=== PATIENT | male | born 1970 | race African-American/Black ===

== ENCOUNTER 2016-12-11 02:04 | Emergency (ER) | payer SELFPAY ==
[~2016-12-11] VITALS: Ht 172.7 cm; Wt 65.0 kg
[~2016-12-11 02:04] MED LIST: ALBUAER3 INH; BENZ100 PO; IBUP-988 PO; SODI0.9A EACH NARE; ZOFR4TAB3 SL
[2016-12-11 02:05] VITALS: BP 131/91; PULSE 96; RESP 18; TEMP 98.1; O2SAT 100
[2016-12-11] MEDS ORDERED: chlorproMAZINE INJ 25 MG in SODIUM CHLORID 0.9% 500 ML INJ 500 ML IV ONE (02:30)
--- NOTE | 2016-12-11 02:58 | PD ---
HPI Chief Complaint: Medical Clearance Time Seen by Provider: 02:23 Travel History International Travel<30 days: No Contact w/Intl Traveler<30days: No Traveled to known affect area: No History of Present Illness HPI This is a 46-year-old male who presents emergency Department with hiccups. He says that his hiccups. Going on intermittently for a year but over the past week they've gotten more severe, constant, and they were keeping him up from sleep tonight so he came to the emergency department. He says he intermittently vomits as well. He says he's lost about 15 pounds in the last several months. He has noticed some swollen nodes in his neck area. He does drink alcohol every day. He doesn't follow with a doctor. He has had a chronic cough but denies any hemoptysis. PFSH Past Medical History Medical History: Denies Significant Hx Diminished Hearing: No Influenza Vaccination: No Social History Alcohol Use: Yes (4 PACK) Tobacco Use: Yes (1/2 PPD) Substance Use: No Allergies-Medications (Allergen,Severity, Reaction): Coded Allergies: No Known Allergies (Verified , 12/11/16) Reported Meds & Prescriptions Reported Meds & Active Scripts Active No Active Prescriptions or Reported Medications Review of Systems Except as stated in HPI: all other systems reviewed are Neg Physical Exam Narrative GENERAL: Thin, actively having hiccups SKIN: Focused skin assessment warm and dry. HEAD: Atraumatic. Normocephalic. EYES: Pupils equal and round. No injection or drainage. ENT: Moist mucous membranes NECK: Trachea midline. Anterior and posterior cervical lymphadenopathy. No axillary lymphadenopathy. CARDIOVASCULAR: Regular rate and rhythm. No murmur appreciated. RESPIRATORY: Clear to auscultation. Breath sounds equal bilaterally. GASTROINTESTINAL: Abdomen soft, non-tender, nondistended. MUSCULOSKELETAL: No obvious deformities. NEUROLOGICAL: Awake and alert. No obvious cranial nerve deficits. Moving all extremities. PSYCHIATRIC: Appropriate mood and affect; insight and judgment normal. Data Data Last Documented VS Vital Signs Date Time Temp Pulse Resp B/P Pulse Ox O2 Delivery O2 Flow Rate FiO2 12/11/16 04:09 99 18 131/102 100 Room Air 12/11/16 02:05 98.1 Orders Complete Blood Count With Diff (12/11/16 02:23) Comprehensive Metabolic Panel (12/11/16 02:23) Ct Thorax/ Chest W Iv Contrast (12/11/16 ) ^ Insert Iv (12/11/16 02:23) Chlorpromazine Inj (Thorazine Inj) (12/11/16 02:30) Iohexol 350 Inj (Omnipaque 350 Inj) (12/11/16 04:08) Labs Laboratory Tests Test 12/11/16 12/11/16 02:35 03:38 Sodium Level 132 MEQ/L Potassium Level 3.8 MEQ/L Chloride Level 93 MEQ/L Carbon Dioxide Level 27.9 MEQ/L Anion Gap 11 MEQ/L Blood Urea Nitrogen 4 MG/DL Creatinine 0.63 MG/DL Estimat Glomerular Filtration 168 ML/MIN Rate Random Glucose 68 MG/DL Calcium Level 8.3 MG/DL Total Bilirubin 0.9 MG/DL Aspartate Amino Transf 201 U/L (AST/SGOT) Alanine Aminotransferase 72 U/L (ALT/SGPT) Alkaline Phosphatase 94 U/L Total Protein 8.0 GM/DL Albumin 3.2 GM/DL White Blood Count 9.1 TH/MM3 Red Blood Count 3.57 MIL/MM3 Hemoglobin 12.0 GM/DL Hematocrit 35.3 % Mean Corpuscular Volume 98.8 FL Mean Corpuscular Hemoglobin 33.7 PG Mean Corpuscular Hemoglobin 34.1 % Concent Red Cell Distribution Width 14.1 % Platelet Count 142 TH/MM3 Mean Platelet Volume 8.0 FL Neutrophils (%) (Auto) 79.6 % Lymphocytes (%) (Auto) 12.6 % Monocytes (%) (Auto) 7.2 % Eosinophils (%) (Auto) 0.2 % Basophils (%) (Auto) 0.4 % Neutrophils # (Auto) 7.3 TH/MM3 Lymphocytes # (Auto) 1.2 TH/MM3 Monocytes # (Auto) 0.7 TH/MM3 Eosinophils # (Auto) 0.0 TH/MM3 Basophils # (Auto) 0.0 TH/MM3 CBC Comment DIFF FINAL Differential Comment MDM Medical Decision Making Medical Screen Exam Complete: Yes Emergency Medical Condition: Yes Interpretation(s) Afebrile, mild tachycardia, normotensive Mild anemia Mild hyponatremia Paraprotein gap of 4.8 Last [address] 12/11/16 0000 Signed Impressions: Service Date/Time: Sunday, December 11, 2016 03:59 - CONCLUSION: 1. No evidence of acute thoracic abnormality. Lung abnormality as above which may reflect Mycobacterium avium intracellulare infection. 2. Hypodense liver compatible with fatty infiltration or hepatocellular disease. Hans Malone MD Differential Diagnosis Thoracic mass, gastritis, GERD, pneumonia Narrative Course This is a 46-year-old male who presents to the emergency department with intractable hiccups. He appears cachectic on exam, has had weight loss and has lymphadenopathy in the cervical region. His appearance would suggest an undiagnosed chronic illness. Labs were obtained which demonstrate a paraprotein Of 4.8. CT of the chest was obtained given my concern for possible malignancy, and it demonstrates a possible BILLIE infection in the right middle lung. I discussed this with the patient and his family member. I recommended he follow up with the [facility] as an outpatient and that he be tested for HIV. I don't think he requires acute treatment at this point. He will be discharged home chlorpromazine which helped him in the emergency department. Diagnosis Primary Impression: Lung abnormality Additional Impression: Intractable hiccups Referrals: [facility] Patient Instructions: General Instructions Additional Instructions: You have a lung abnormality on CT which may reflect mycobacterium avium intracellulare. You need to have follow up with a primary care physician and you should be tested for HIV as an outpatient. Med/Other Pt SpecificInfo: Prescription(s) given Scripts Chlorpromazine 25 Mg Tab25 Mg PO Q6H PRN (HICCOUGHS) 7 Days Ref 0 Prov:Sarahi So MD 12/11/16 Disposition: 01 DISCHARGE HOME Condition: Stable Sarahi So MD Dec 11, 2016 02:58
[2016-12-11 03:07] LABS: ALKALINE PHOSPHATASE 94 U/L (45-117); TOTAL BILIRUBIN ADULT 0.9 MG/DL (0.2-1.0)
[2016-12-11 03:20] LABS: ALT (GPT) 72 U/L (12-78); ANION GAP 11 MEQ/L (5-15); AST (GOT) 201 U/L (15-37); BICARBONATE 27.9 MEQ/L (21.0-32.0); BLOOD UREA NITROGEN 4 MG/DL (7-18); CHLORIDE 93 MEQ/L (98-107); GLOMERULAR FILTRATION RATE 168 ML/MIN (>89); POTASSIUM 3.8 MEQ/L (3.5-5.1); SODIUM (NA) 132 MEQ/L (136-145)
[2016-12-11 03:58] LABS: AUTOMATED NEUTROPHIL # 7.3 TH/MM3 (1.8-7.7); BASOPHIL % 0.4 % (0.0-2.0); EOSINOPHIL % 0.2 % (0.0-4.0); HEMATOCRIT 35.3 % (39.0-51.0); HEMO FLAGS DIFF FINAL; LYMPH % 12.6 % (9.0-44.0); LYMPHOCYTE # 1.2 TH/MM3 (1.0-4.8); MEAN CELL VOLUME 98.8 FL (80.0-100.0); MEAN CORPUSCULAR HEMOGLOBIN 33.7 PG (27.0-34.0); MEAN CORPUSCULAR HGB CONC 34.1 % (32.0-36.0); MONO % 7.2 % (0.0-8.0); NEUT % 79.6 % (16.0-70.0); PLATELET COUNT 142 TH/MM3 (150-450); RED BLOOD COUNT 3.57 MIL/MM3 (4.50-5.90); RED CELL DISTRIBUTION WIDTH 14.1 % (11.6-17.2); WHITE BLOOD COUNT 9.1 TH/MM3 (4.0-11.0)
[2016-12-11] MEDS ORDERED: IOHEXOL 350 MG/ML 10 ML VIAL (for RAD DIAG) IV ONE (04:08)
[2016-12-11 04:09] VITALS: BP 131/102; PULSE 99; RESP 18; O2SAT 100
--- NOTE | 2016-12-11 04:20 | RADRPT ---
EXAM DATE/TIME: 12/11/2016 03:59 [facility] COMPARISON: No previous studies available for comparison. INDICATIONS : Hiccups for several days. IV CONTRAST: 60 cc Omnipaque 350 (iohexol) IV RADIATION DOSE: 5.10 CTDIvol (mGy) MEDICAL HISTORY : None SURGICAL HISTORY : None. ENCOUNTER: Initial ACUITY: 4 - 6 days PAIN SCALE: 3/10 LOCATION: chest TECHNIQUE: Volumetric scanning of the chest was performed. Using automated exposure control and adjustment of t he mA and/or kV according to patient size, radiation dose was kept as low as reasonably achievable to obtain optimal diagnostic quality images. FINDINGS: There is a tree in bud appearance consistent with mycobacterium avium intracellulare in the right mid dle lobe. No pleural effusions are identified. No pulmonary nodules are identified. There is parenchy mal scarring on the left. Examination of the mediastinum demonstrates no abnormally enlarged lymph nodes by CT criteria. No axi llary or hilar abnormalities are identified. Coronary artery calcifications are not present. There is direct origin of the left vertebral artery from the arch which can be seen as a normal variation. Th ere is decreased density of the liver with respect to the spleen compatible with fatty infiltration. The spleen is unremarkable. CONCLUSION: 1. No evidence of acute thoracic abnormality. Lung abnormality as above which may reflect Mycobacteri um avium intracellulare infection. 2. Hypodense liver compatible with fatty infiltration or hepatocellular disease. Hans Malone MD on December 11, 2016 at 4:16 Board Certified Radiologist. This report was verified electronically.
[2016-12-11] MEDS ORDERED: CHLO25TA38 PO (04:43)
== END 2016-12-11 05:09 | disposition home or self-care (01) ==
LOC: NEPE 02:04
DX: R91.8 Other nonspecific abnormal finding of lung field (principal); F17.210 Nicotine dependence, cigarettes, uncomplicated
CPT/HCPCS: 71260; 80053; 85025; 96365; 96366; 99285; J3230; J7040; Q9967

== ENCOUNTER 2017-02-22 14:42 | Inpatient (IN) | payer SELFPAY ==
[~2017-02-22] VITALS: Ht 167.6 cm; Wt 56.7 kg
[~2017-02-22 14:42] MED LIST changes: -ALBUAER3 INH; -BENZ100 PO; +CHLO25TA38 PO; -IBUP-988 PO; -SODI0.9A EACH NARE; -ZOFR4TAB3 SL
[2017-02-22 14:59] VITALS: BP 129/98; PULSE 79; RESP 16; TEMP 98
[2017-02-22 15:05] VITALS: BP 129/98; PULSE 79; RESP 16; RESP 18; TEMP 98; O2SAT 96
[2017-02-22] MEDS ORDERED: PANTOPRAZOLE INJ 80 MG in SODIUM CHLORIDE 0.9% INJ 35 ML IV ONE (15:14)
[2017-02-22] MEDS ORDERED: SODIUM CHLOR 0.9% 1000 ML INJ 1,000 ML IV SCH ×2 (15:14→17:00)
[2017-02-22] MEDS ORDERED: SODIUM CHLORIDE 0.9% FLUSH 10 ML FLUSH IVF PRN (15:15)
[2017-02-22] MEDS ORDERED: LORazepam 1 MG TAB PO PRN (15:30)
[2017-02-22] MEDS ORDERED: LORazepam 2 MG TAB PO PRN (15:30)
[2017-02-22] MEDS ORDERED: LORazepam 2 MG/ML VIAL IV PUSH PRN ×4 (15:30)
[2017-02-22] MEDS ORDERED: FLUMAZENIL 0.5 MG/5 ML VIAL IV PUSH PRN (15:30)
--- NOTE | 2017-02-22 15:41 | PD ---
HPI Chief Complaint: GI Complaint Time Seen by Provider: 15:14 Travel History International Travel<30 days: No Contact w/Intl Traveler<30days: No Traveled to known affect area: No History of Present Illness HPI This is a 46-year-old male with a history of chronic daily alcohol abuse, questionable chronic pulmonary infection, who presents here today with complaints of bloody vomitus 2 episodes. The patient reported initially that he coughed up blood. Per paramedics he then clarified that he vomited bright red blood. The patient denies any melena. Patient denies a bright red blood per rectum. He was seen here in November and had a chest CT scan that showed questionable Mycobacterium avium complex. He was instructed to follow up as an outpatient. He has not done this as of yet. The patient denies having history of HIV. He states he has not been tested for HIV though. There are no other complaints time my examination. PFSH Past Medical History Hx Anticoagulant Therapy: No Diminished Hearing: No Medical other: Yes (ETOH ABUSE ) Immunizations Current: No Tetanus Vaccination: < 5 Years Influenza Vaccination: No Past Surgical History Joint Replacement: Yes Social History Alcohol Use: Yes (4 PACK/DAY ) Tobacco Use: Yes (1/2 PPD) Substance Use: No (DENIES ) Allergies-Medications (Allergen,Severity, Reaction): Coded Allergies: No Known Allergies (Verified , 02/22/17) Reported Meds & Prescriptions Reported Meds & Active Scripts Active No Active Prescriptions or Reported Medications Review of Systems Except as stated in HPI: all other systems reviewed are Neg General / Constitutional: No: Fever, Chills HENT: No: Headaches, Neck Pain Cardiovascular: No: Chest Pain or Discomfort, Palpitations Respiratory: Positive: Cough, No: Shortness of Breath Gastrointestinal: Positive: Hematemesis, No: Nausea, Vomiting, Diarrhea, Abdominal Pain, Hematochezia Genitourinary: No: Dysuria, Nocturia Skin: No Rash, No Itching Neurologic: No: Weakness, Dizziness, Headache Physical Exam Narrative GENERAL: Well-developed well-nourished male in no acute rest her distress. SKIN: Focused skin assessment warm/dry. HEAD: Atraumatic. Normocephalic. EYES:No scleral icterus. Red scleral injection. No drainage. ENT: No nasal bleeding or discharge. Mucous membranes pink and moist. NECK: Trachea midline supple. CARDIOVASCULAR: Regular rate and rhythm. No murmur appreciated. RESPIRATORY: No accessory muscle use. Clear to auscultation. Breath sounds equal bilaterally. Decreased respiratory effort. GASTROINTESTINAL: Abdomen soft, non-tender, nondistended. MUSCULOSKELETAL: No obvious deformities. No clubbing. No cyanosis. No edema. NEUROLOGICAL: Awake and alert. No obvious cranial nerve deficits. Motor grossly within normal limits. Normal speech. PSYCHIATRIC: Appropriate mood and affect; insight and judgment normal. Data Data Last Documented VS Vital Signs Date Time Temp Pulse Resp B/P (MAP) Pulse Ox O2 Delivery O2 Flow Rate FiO2 02/22/17 16:00 82 15 144/92 (109) 97 Room Air 02/22/17 15:05 98.0 Orders Orders Complete Blood Count With Diff (02/22/17 15:14) Comprehensive Metabolic Panel (02/22/17 15:14) Lipase (02/22/17 15:14) Prothrombin Time / Inr (Pt) (02/22/17 15:14) Act Partial Throm Time (Ptt) (02/22/17 15:14) Alcohol (Ethanol) (02/22/17 15:14) Urinalysis - C+S If Indicated (02/22/17 15:14) Type And Screen (02/22/17 15:14) Ecg Monitoring (02/22/17 15:14) Iv Access Insert/Monitor (02/22/17 15:14) Ng Gastric Tube Insert/Monitor (02/22/17 15:14) Oximetry (02/22/17 15:14) Sodium Chlor 0.9% 1000 Ml Inj (Ns 1000 M (02/22/17 15:14) Sodium Chloride 0.9% Flush (Ns Flush) (02/22/17 15:15) Sodium Chloride 0.9... W/Pantoprazole In (02/22/17 15:14) Alcohol Withdrawal Asmt-Ciwa Q4HX18 (02/22/17 15:26) Flumazenil Inj (Romazicon Inj) (02/22/17 15:30) Lorazepam (Ativan) (02/22/17 15:30) Lorazepam Inj (Ativan Inj) (02/22/17 15:30) Lorazepam (Ativan) (02/22/17 15:30) Lorazepam Inj (Ativan Inj) (02/22/17 15:30) Lorazepam Inj (Ativan Inj) (02/22/17 15:30) Lorazepam Inj (Ativan Inj) (02/22/17 15:30) Sodium Chlor 0.9% 1000 Ml Inj (Ns 1000 M (02/22/17 17:00) Chest, Single Ap (02/22/17 16:52) Sodium Chloride 0.9... W/Pantoprazole In (02/22/17 16:56) Admit Order (Ed Use Only) (02/22/17 16:57) Labs Laboratory Tests Test 02/22/17 15:00 White Blood Count 6.1 TH/MM3 Red Blood Count 4.01 MIL/MM3 Hemoglobin 13.7 GM/DL Hematocrit 41.3 % Mean Corpuscular Volume 102.8 FL Mean Corpuscular Hemoglobin 34.0 PG Mean Corpuscular Hemoglobin Concent 33.1 % Red Cell Distribution Width 13.6 % Platelet Count 198 TH/MM3 Mean Platelet Volume 8.1 FL Neutrophils (%) (Auto) 69.9 % Lymphocytes (%) (Auto) 19.1 % Monocytes (%) (Auto) 10.1 % Eosinophils (%) (Auto) 0.4 % Basophils (%) (Auto) 0.5 % Neutrophils # (Auto) 4.3 TH/MM3 Lymphocytes # (Auto) 1.2 TH/MM3 Monocytes # (Auto) 0.6 TH/MM3 Eosinophils # (Auto) 0.0 TH/MM3 Basophils # (Auto) 0.0 TH/MM3 CBC Comment DIFF FINAL Differential Comment Prothrombin Time 10.6 SEC Prothromb Time International Ratio 1.0 RATIO Activated Partial Thromboplast Time 24.3 SEC Blood Urea Nitrogen 5 MG/DL Creatinine 0.73 MG/DL Random Glucose 61 MG/DL Total Protein 8.6 GM/DL Albumin 3.5 GM/DL Calcium Level 8.8 MG/DL Alkaline Phosphatase 79 U/L Aspartate Amino Transf (AST/SGOT) 93 U/L Alanine Aminotransferase (ALT/SGPT) 37 U/L Total Bilirubin 0.9 MG/DL Sodium Level 128 MEQ/L Potassium Level 4.5 MEQ/L Chloride Level 87 MEQ/L Carbon Dioxide Level 22.9 MEQ/L Anion Gap 18 MEQ/L Estimat Glomerular Filtration Rate 141 ML/MIN Lipase 351 U/L Ethyl Alcohol Level LESS THAN 3 MG/DL [facility] Medical Decision Making Medical Screen Exam Complete: Yes Emergency Medical Condition: Yes Differential Diagnosis Hematemesis versus hemoptysis versus worsening pulmonary infection versus alcoholic induced ulcer Narrative Course This is a 46-year-old gentleman with history of daily alcohol use, presents today with complaints of vomiting blood 2 episodes. Patient has not had previous GI bleeds before. The patient was seen here previously and had a pulmonary finding that was concerning for Mycobacterium avium complex. The patient never followed up with anyone. The patient had an NG tube placed today that shows dark emesis that seem positive. She also complaining of hiccups which he was on his previous visit. The patient's H&H is stable. Sodium is 128. There is a call out to the admitting team. The patient has been typed and crossed. He's been given and IV bolus of Protonix. He'll be started on the Protonix drip. Case was discussed with senior resident covering for Dr. Ely Galvez. He is agreeable to the admission. Diagnosis Primary Impression: Hematemesis Additional Impressions: Hyponatremia History of alcohol abuse Cough Intractable hiccups Admitting Information Admitting Physician Requests: Admit Scripts No Active Prescriptions or Reported Meds Kole Calles MD Feb 22, 2017 15:41
[2017-02-22 16:00] VITALS: BP 144/92; PULSE 82; RESP 15; O2SAT 97
[2017-02-22 16:06] LABS: AUTOMATED NEUTROPHIL # 4.3 TH/MM3 (1.8-7.7); BASOPHIL % 0.5 % (0.0-2.0); EOSINOPHIL % 0.4 % (0.0-4.0); HEMATOCRIT 41.3 % (39.0-51.0); HEMO FLAGS DIFF FINAL; LYMPH % 19.1 % (9.0-44.0); LYMPHOCYTE # 1.2 TH/MM3 (1.0-4.8); MEAN CELL VOLUME 102.8 FL (80.0-100.0); MEAN CORPUSCULAR HGB CONC 33.1 % (32.0-36.0); MONO % 10.1 % (0.0-8.0); NEUT % 69.9 % (16.0-70.0); PLATELET COUNT 198 TH/MM3 (150-450); RED BLOOD COUNT 4.01 MIL/MM3 (4.50-5.90); RED CELL DISTRIBUTION WIDTH 13.6 % (11.6-17.2); WHITE BLOOD COUNT 6.1 TH/MM3 (4.0-11.0)
[2017-02-22 16:19] LABS: APTT (PATIENT) 24.3 SEC (24.3-30.1); PROTHROMBIN TIME - PATIENT 10.6 SEC (9.8-11.6)
[2017-02-22 16:33] LABS: ALKALINE PHOSPHATASE 79 U/L (45-117); TOTAL BILIRUBIN ADULT 0.9 MG/DL (0.2-1.0)
[2017-02-22 16:40] LABS: ALCOHOL LESS THAN 3 MG/DL (0-5); ALT (GPT) 37 U/L (12-78); ANION GAP 18 MEQ/L (5-15); AST (GOT) 93 U/L (15-37); BICARBONATE 22.9 MEQ/L (21.0-32.0); BLOOD UREA NITROGEN 5 MG/DL (7-18); CHLORIDE 87 MEQ/L (98-107); GLOMERULAR FILTRATION RATE 141 ML/MIN (>89); POTASSIUM 4.5 MEQ/L (3.5-5.1); SODIUM (NA) 128 MEQ/L (136-145)
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
[2017-02-22 17:41] LABS: BLOOD, URINE NEG (NEG); COMMENT (UR) CULT NOT INDICATED; CULTURE IF INDICATED CULT NOT INDICATED; GLUCOSE,URINE NEG (NEG); KETONE, URINE 150 mg/dL (NEG); MUCUS URINE FEW /lpf (OCC); NITRITE,URINE NEG (NEG); PH, URINE 5.5 (5.0-8.5); URINE COLOR YELLOW (YELLW/STRAW)
--- NOTE | 2017-02-22 17:51 | RADRPT ---
EXAM DATE/TIME: 02/22/2017 17:06 [facility] COMPARISON: No previous studies available for comparison. INDICATIONS : Cough MEDICAL HISTORY : None. SURGICAL HISTORY : None. ENCOUNTER: Initial ACUITY: 2 days PAIN SCORE: 0/10 LOCATION: chest FINDINGS: A single view of the chest demonstrates the lungs to be symmetrically aerated without evidence of mas s, infiltrate or effusion. The cardiomediastinal contours are unremarkable. Nasogastric tube is acr oss the GE junction. Osseous structures are intact. CONCLUSION: Nasogastric tube across the GE junction. Negative for acute process. Ernie Contreras MD FACR on February 22, 2017 at 17:49 Board Certified Radiologist. This report was verified electronically.
[2017-02-22] MEDS ORDERED: SODIUM CHLORIDE 0.9% FLUSH 10 ML FLUSH IV FLUSH PRN (18:00)
[2017-02-22] MEDS ORDERED: ONDANSETRON HCL 4 MG/2 ML VIAL IV PRN (18:00)
[2017-02-22] MEDS: PANTOPRAZOLE INJ 80 MG in SODIUM CHLORIDE 0.9% INJ 100 ML IV SCH (18:41)
[2017-02-22] MEDS ORDERED: IOHEXOL 350 MG/ML 10 ML VIAL (for RAD DIAG) IVCONTRAST ONE (19:49)
[2017-02-22 20:00] VITALS: O2SAT 97
[2017-02-22] MEDS: SODIUM CHLOR 0.9% 1000 ML INJ 1,000 ML IV SCH (20:17)
[2017-02-22] MEDS: SODIUM CHLORIDE 0.9% FLUSH 10 ML FLUSH IV FLUSH SCH (21:00)
--- NOTE | 2017-02-22 21:07 | RADRPT ---
EXAM DATE/TIME: 02/22/2017 19:44 [facility] COMPARISON: CT THORAX W CONTRAST, December 11, 2016, 3:59. INDICATIONS : Pulmonary disease. Patient complains of hemoptysis for 1 day. IV CONTRAST: 71 cc Omnipaque 350 (iohexol) IV RADIATION DOSE: 5.1 CTDIvol (mGy) MEDICAL HISTORY : Cardiovascular disease. SURGICAL HISTORY : None. ENCOUNTER: Initial ACUITY: 1 day PAIN SCALE: 0/10 LOCATION: chest TECHNIQUE: Volumetric scanning of the chest was performed. Using automated exposure control and adjustment of t he mA and/or kV according to patient size, radiation dose was kept as low as reasonably achievable to obtain optimal diagnostic quality images. DICOM format image data is available electronically for review and comparison. Follow-up recommendations for detected pulmonary nodules are based at a minimum on nodule size and pa tient risk factors according to Fleischner Society Guidelines. FINDINGS: LUNGS: There is persistent linear scarring or atelectasis seen at the posterior medial left lung base and at the posterior medial right upper lung. The previously seen area of consolidation at the lateral righ t midlung has resolved. PLEURA: There is no pleural thickening or pleural effusion. MEDIASTINUM: The heart and great vessels demonstrate no acute abnormality. There is no mediastinal or hilar lymph adenopathy. The esophagus is distended. There is an NG tube in place. There is some prominence of the soft tissues at the upper stomach at the GE junction region. AXILLAE: Within normal limits. No lymphadenopathy. SKELETAL: Within normal limits for patient age. MISCELLANEOUS: The visualized upper abdominal organs demonstrate no acute abnormality. There is hepatic steatosis pr esent. CONCLUSION: 1. Persistent areas of scarring or atelectasis. The previously seen consolidation in the right midlun g has resolved. 2. Dilatation of the esophagus with some questionable prominence at the GE junction region. Direct in spection of this region could be performed. 3. Hepatic steatosis. Harinder Mckinley MD on February 22, 2017 at 20:59 Board Certified Radiologist. This report was verified electronically.
[2017-02-22 21:12] LABS: HEMATOCRIT 38.3 % (39.0-51.0); HEMATOCRIT 38.6 % (39.0-51.0); REVIEW FLAG FINAL
[2017-02-22 21:47] VITALS: BP 132/85; PULSE 70; RESP 18; O2SAT 100
[2017-02-22] MEDS: cefTRIAXone INJ 1,000 MG in SODIUM CHLORIDE 0.9% INJ 100 ML IV SCH (21:52)
[2017-02-23] VITALS (7 sets, daily range): BP systolic 125–156; BP diastolic 72–86; PULSE 78–88; RESP 18; TEMP 98.1–99.3; O2SAT 97–99
[2017-02-23] MEDS: PANTOPRAZOLE INJ 80 MG in SODIUM CHLORIDE 0.9% INJ 100 ML IV SCH ×3 (03:32→22:56)
[2017-02-23] MEDS: SODIUM CHLOR 0.9% 1000 ML INJ 1,000 ML IV SCH (03:49)
[2017-02-23 03:58] LABS: AUTOMATED NEUTROPHIL # 6.9 TH/MM3 (1.8-7.7); BASOPHIL % 0.3 % (0.0-2.0); EOSINOPHIL % 0.3 % (0.0-4.0); HEMATOCRIT 38.3 % (39.0-51.0); HEMO FLAGS DIFF FINAL; LYMPH % 12.6 % (9.0-44.0); LYMPHOCYTE # 1.1 TH/MM3 (1.0-4.8); MEAN CELL VOLUME 102.6 FL (80.0-100.0); MEAN CORPUSCULAR HEMOGLOBIN 34.5 PG (27.0-34.0); MEAN CORPUSCULAR HGB CONC 33.6 % (32.0-36.0); MONO % 10.2 % (0.0-8.0); NEUT % 76.6 % (16.0-70.0); PLATELET COUNT 184 TH/MM3 (150-450); RED BLOOD COUNT 3.73 MIL/MM3 (4.50-5.90); RED CELL DISTRIBUTION WIDTH 13.4 % (11.6-17.2); WHITE BLOOD COUNT 9.1 TH/MM3 (4.0-11.0)
[2017-02-23 04:26] LABS: ALKALINE PHOSPHATASE 75 U/L (45-117); ALT (GPT) 32 U/L (12-78); ANION GAP 18 MEQ/L (5-15); AST (GOT) 59 U/L (15-37); BICARBONATE 21.5 MEQ/L (21.0-32.0); BLOOD UREA NITROGEN 4 MG/DL (7-18); CHLORIDE 95 MEQ/L (98-107); GLOMERULAR FILTRATION RATE 144 ML/MIN (>89); SODIUM (NA) 134 MEQ/L (136-145)
[2017-02-23] MEDS ORDERED: DEXTROSE 50% IN WATER 50 ML SYRINGE IV ONE (12:57)
[2017-02-23] MEDS ORDERED: PROPOFOL 200 MG/20 ML AMP IV ONE (13:00)
--- NOTE | 2017-02-23 13:13 | GIPROC ---
[facility] [address] [facility]. [facility], [address] EGD PROCEDURE REPORT EXAM DATE: 02/23/2017 PATIENT NAME: Kostas Orozco MR #: [id number] BIRTHDATE: 1970 ATTENDING: Syed Valdes MD ORDER #: [id number] WHIP OPERATOR: Gerson Shirley and Gerda Downing STATUS: inpatient INDICATIONS: The patient is a 46 yr old male here for an EGD due to hematemesis PROCEDURE PERFORMED: EGD w/ biopsy MEDICATIONS: None and Per Anesthesia. TOPICAL ANESTHETIC: none CONSENT: The patient understands the risks and benefits of the procedure and understands that these risks include, but are not limited to: sedation, allergic reaction, infection, perforation and/or bleeding. Alternative means of evaluation and treatment include, among others: physical exam, x-rays, and/or surgical intervention. The patient elects to proceed with this endoscopic procedure. medical equipment was checked for proper function. Hand hygiene and appropriate measures for infection prevention was taken. After the risks, benefits and alternatives of the procedure were thoroughly explained, Informed consent was verified, confirmed and timeout was successfully executed by the treatment team. The patient was anesthetized with topical anesthesia and the Pentax [id number] endoscope was introduced through the mouth and advanced to the second portion of the duodenum. Retroflexion was performed and was normal The gastroscope was then slowly withdrawn and removed. ESOPHAGUS: A non-bleeding Beryl-Bailey tear was found in the lower third of the esophagus. STOMACH: Multiple medium sized non-bleeding, shallow, irregular shaped and clean-based ulcers were found in the gastric antrum. Biopsies were taken at edge of the ulcers and at the center of the ulcers. Nasogastric tube trauma was evident characterized by erythema. DUODENUM: The duodenal mucosa appeared normal in the bulb and second portion of the duodenum. ADVERSE EVENTS: There were no complications. IMPRESSIONS: 1. Beryl-Bailey tear in the lower third of the esophagus 2. Multiple medium sized ulcers were found in the gastric antrum; biopsies were taken 3. Nasogastric tube trauma was evident 4. Normal duodenal mucosa in the bulb and second portion of the duodenum 5. Retroflexion was performed and was normal RECOMMENDATIONS: 1. Await biopsy results. Biopsy results will not be ready for 7-10 days. If you don't hear from us in two weeks, call our office for biopsy results. 2. Continue PPI PATIENT CONDITION: stable DISPOSITION: Observation REPEAT EXAM: NONE Syed Valdes MD eSigned: Syed Valdes MD 02/23/2017 1:13 PM cc: PATIENT NAME: Kostas Orozco MR#: [id number]
[2017-02-23] MEDS ORDERED: ONDANSETRON HCL 4 MG/2 ML VIAL IV PUSH ONE (13:15)
[2017-02-23] MEDS ORDERED: DO NOT ADM ANY ANTICOAGULANT DRUGS PRN (13:15)
[2017-02-23] MEDS: DEXT 5%-NACL 0.9% 1000 ML INJ 1,000 ML IV SCH ×3 (13:26→23:55)
[2017-02-23] MEDS: SODIUM CHLORIDE 0.9% FLUSH 10 ML FLUSH IV FLUSH SCH ×2 (16:11→21:00)
[2017-02-23 20:45] LABS: HEMATOCRIT 36.7 % (39.0-51.0); REVIEW FLAG FINAL
[2017-02-23] MEDS: cefTRIAXone INJ 1,000 MG in SODIUM CHLORIDE 0.9% INJ 100 ML IV SCH (21:02)
[2017-02-24] VITALS (8 sets, daily range): BP systolic 123–142; BP diastolic 74–92; PULSE 73–95; RESP 16–20; TEMP 97.3–98.7; O2SAT 96–100
[2017-02-24] MEDS: PANTOPRAZOLE INJ 80 MG in SODIUM CHLORIDE 0.9% INJ 100 ML IV SCH ×2 (03:26→14:06)
[2017-02-24 06:50] LABS: BICARBONATE 28.2 MEQ/L (21.0-32.0); POTASSIUM 3.2 MEQ/L (3.5-5.1)
[2017-02-24 07:03] LABS: HEMATOCRIT 36.7 % (39.0-51.0); MEAN CORPUSCULAR HEMOGLOBIN 34.9 PG (27.0-34.0); MEAN CORPUSCULAR HGB CONC 33.9 % (32.0-36.0); PLATELET COUNT 139 TH/MM3 (150-450); RED BLOOD COUNT 3.56 MIL/MM3 (4.50-5.90); RED CELL DISTRIBUTION WIDTH 13.3 % (11.6-17.2); REVIEW FLAG FINAL; WHITE BLOOD COUNT 6.4 TH/MM3 (4.0-11.0)
[2017-02-24] MEDS: SODIUM CHLORIDE 0.9% FLUSH 10 ML FLUSH IV FLUSH SCH ×2 (08:32→21:00)
[2017-02-24] MEDS: DEXT 5%-NACL 0.9% 1000 ML INJ 1,000 ML IV SCH (09:48)
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
--- NOTE | 2017-02-24 10:44 | HHI.FPPN ---
Subjective Remarks Patient states that he is doing well today. No complaints. Is tolerating his diet and requests it advanced to regular. No fever or chills, no chest pain, no shortness of breath, no abdominal pain, no nausea or vomiting, no constipation or diarrhea. The dizziness or lightheadedness (Bhumi Durham MD R1) Objective Vitals Vital Signs Date Time Temp Pulse Resp B/P (MAP) Pulse Ox O2 Delivery O2 Flow Rate FiO2 02/24/17 08:53 98.6 88 18 123/74 (90) 98 02/24/17 04:54 98.2 84 18 135/77 (96) 96 02/24/17 01:23 98.7 95 16 141/92 (108) 97 02/24/17 00:13 73 02/23/17 22:14 98.6 84 18 133/76 (95) 98 02/23/17 17:38 99 21 02/23/17 13:40 98.5 75 16 135/79 (97) 100 Room Air 02/23/17 13:30 75 20 135/80 (98) 100 02/23/17 13:15 98.5 85 14 136/78 (97) 100 Nasal Cannula 2 02/23/17 11:00 98.1 79 18 132/86 (101) 97 I/O 02/23/17 02/23/17 02/23/17 02/24/17 02/24/17 02/24/17 07:00 15:00 23:00 07:00 15:00 23:00 Intake Total 250 ml 620 ml 1100 ml Output Total 300 ml 100 ml 500 ml Balance -300 ml 250 ml 520 ml 1100 ml -500 ml Intake Oral 520 ml IV Total 100 ml 1100 ml Other 250 ml Output Urine Total 300 ml 100 ml 500 ml # Voids 4 # Bowel Movements 1 1 (Bhumi Durham MD R1) Result Diagram: 02/24/17 0343 02/24/17 0343 Imaging Last Impressions Chest X-Ray 02/22/17 1652 Signed Impressions: Service Date/Time: Wednesday, February 22, 2017 17:06 - CONCLUSION: Nasogastric tube across the GE junction. Negative for acute process. rEnie Contreras MD FACR Chest CT 02/22/17 0000 Signed Impressions: Service Date/Time: Wednesday, February 22, 2017 19:44 - CONCLUSION: 1. Persistent areas of scarring or atelectasis. The previously seen consolidation in the right midlung has resolved. 2. Dilatation of the esophagus with some questionable prominence at the GE junction region. Direct inspection of this region could be performed. 3. Hepatic steatosis. Harinder Mckinley MD Objective Remarks GENERAL: Well-nourished, cachectic patient. SKIN: Warm and dry. HEAD: Normocephalic. EYES: No scleral icterus. No drainage. Injected. CARDIOVASCULAR: Regular rate and rhythm without murmurs, gallops, or rubs. RESPIRATORY: Breath sounds equal bilaterally. No accessory muscle use. GASTROINTESTINAL: Abdomen soft, non-tender, nondistended. EXTREMITIES: No cyanosis, or edema. NEUROLOGICAL: Awake, alert. Non-focal. Procedures EGD performed 02/23/17 Medications and IVs Current Medications Medications (Trade) Dose Ordered Sig/Trevor Route Start Time Stop Time Status Last Admin (Romazicon Inj) 0.2 mg Q1M PRN IV PUSH 02/22/17 15:30 (Ativan) 1 mg Q4H PRN PO 02/22/17 15:30 (Ativan Inj) 1 mg Q4H PRN IV PUSH 02/22/17 15:30 02/22/17 15:58 (Ativan) 2 mg Q2H PRN PO 02/22/17 15:30 (Ativan Inj) 2 mg Q2H PRN IV PUSH 02/22/17 15:30 (Ativan Inj) 2 mg Q1H PRN IV PUSH 02/22/17 15:30 (Ativan Inj) 2 mg Q15M PRN IV PUSH 02/22/17 15:30 Pantoprazole Sodium 80 mg/ Sodium Chloride 100 ml @ 10 mls/hr Q10H IV 02/22/17 16:56 02/24/17 03:26 (NS Flush) 2 ml UNSCH PRN IV FLUSH 02/22/17 18:00 (NS Flush) 2 ml BID IV FLUSH 02/22/17 21:00 02/23/17 16:11 (Zofran Inj) 4 mg Q6H PRN IV 02/22/17 18:00 Ceftriaxone Sodium 1000 mg/ Sodium Chloride 100 ml @ 200 mls/hr Q24H IV 02/22/17 20:00 02/23/17 21:02 Dextrose/Sodium Chloride 1,000 ml @ 100 mls/hr Q10H IV 02/23/17 10:00 02/24/17 09:48 Miscellaneous Information ALL NURSING DEPARTME... UNSCH PRN .XX 02/23/17 13:15 02/24/17 13:14 (Bhumi Durham MD R1) A/P Assessment and Plan Mr. Kenyon is a 46-year-old male with no significant past medical history presenting to the ED for throwing up blood since this morning. He is being admitted for an upper GI bleed. (Bhumi Durham MD R1) Attending Attestation Patient seen and examined with the resident team. Case reviewed and discussed Agree with plan of care as discussed with me and documented in the resident note. (Ely Galvez MD) Problem List: (1) Vomiting of blood ICD Codes: K92.0 - Hematemesis Status: Acute Plan: Patient presenting with hematemesis of one-day duration. Patient has a history of alcohol abuse. Esophageal varices versus gastric ulcer Vitals are stable. Hemoglobin is 13.7 on admission and remaining stable. CT chest showed dilation of the esophagus was some questionable prominence at the GE junction region. Hepatitis profile negative. -IV fluids -Clear liquid diet, advance as tolerated -Consulted GI, appreciate recommendations * EGD performed yesterday, showed nonbleeding Beryl-Bailey tear in the lower third of the esophagus, multiple medium-sized nonbleeding, shallow, alert regular shaped and clean-based ulcers in the gastric antrum. Biopsies were taken. * Continue PPI -Ceftriaxone IV to prevent dissemination of bacteria due to possible bleeding esophageal varices * Blood cultures pending -Protonix drip -Zofran when necessary for nausea (2) Alcohol abuse ICD Codes: F10.10 - Alcohol abuse, uncomplicated Status: Chronic Plan: Patient has been drinking one to two 4-packs of beer every day for many years. He has gone through withdrawal before. Macrocytosis on CBC. AST greater than ALT on hepatic function panel. CIWA scores remain low in the 0-2 range. -CIWA protocol -Ativan as needed per protocol (3) BILLIE (mycobacterium avium-intracellulare) ICD Codes: A31.0 - Pulmonary mycobacterial infection Status: Resolved Plan: BILLIE seen on chest CT on 12/11/16 hospital visit. -Repeat CT thorax show persistent areas of scarring or atelectasis. The previously consolidation in the right midline had resolved. -Sputum cultures - HIV negative. (4) FEN Status: Acute Plan: Fluids: Normal saline at 100 mL's per hour Electrolytes: Monitor and replete as needed next Nutrition nothing by mouth DVT prophylaxis: SCDs (Bhumi Durham MD R1) Problem Qualifiers (1) Vomiting of blood: Qualified Codes: K92.0 - Hematemesis Bhumi Durham MD R1 Feb 24, 2017 10:44 Ely Galvez MD Feb 26, 2017 09:37
[2017-02-24] MEDS ORDERED: POTASSIUM CHLORIDE 10 MEQ CONTROLLED RELEASE TAB PO ONE (14:45)
[2017-02-24] MEDS ORDERED: GLUCAGON 1 MG/ML VIAL OTHER PRN (16:30)
[2017-02-24] MEDS: SODIUM CHLOR 0.9% 1000 ML INJ 1,000 ML IV SCH (16:30)
[2017-02-24] MEDS ORDERED: DEXTROSE 50% IN WATER 50 ML VIAL(D50) IV PRN (16:30)
[2017-02-24] MEDS: cefTRIAXone INJ 1,000 MG in SODIUM CHLORIDE 0.9% INJ 100 ML IV SCH (21:35)
[2017-02-25] VITALS (8 sets, daily range): BP systolic 101–148; BP diastolic 81–89; PULSE 67–109; RESP 18–20; TEMP 97.7–99.1; O2SAT 99–100
[2017-02-25] MEDS: PANTOPRAZOLE INJ 80 MG in SODIUM CHLORIDE 0.9% INJ 100 ML IV SCH ×2 (00:16→13:34)
[2017-02-25] MEDS: SODIUM CHLOR 0.9% 1000 ML INJ 1,000 ML IV SCH ×3 (03:45→13:34)
[2017-02-25 08:53] LABS: HEMATOCRIT 39.1 % (39.0-51.0); MEAN CELL VOLUME 104.1 FL (80.0-100.0); MEAN CORPUSCULAR HEMOGLOBIN 34.8 PG (27.0-34.0); MEAN CORPUSCULAR HGB CONC 33.4 % (32.0-36.0); PLATELET COUNT 140 TH/MM3 (150-450); RED BLOOD COUNT 3.76 MIL/MM3 (4.50-5.90); RED CELL DISTRIBUTION WIDTH 13.5 % (11.6-17.2); REVIEW FLAG FINAL; WHITE BLOOD COUNT 6.4 TH/MM3 (4.0-11.0)
[2017-02-25] MEDS: SODIUM CHLORIDE 0.9% FLUSH 10 ML FLUSH IV FLUSH SCH ×2 (09:00→21:00)
[2017-02-25 09:12] LABS: ANION GAP 10 MEQ/L (5-15); BICARBONATE 24.7 MEQ/L (21.0-32.0); BLOOD UREA NITROGEN LESS THAN 1 MG/DL (7-18); CHLORIDE 99 MEQ/L (98-107); GLOMERULAR FILTRATION RATE 151 ML/MIN (>89); MAGNESIUM 1.3 MG/DL (1.5-2.5); POTASSIUM 3.1 MEQ/L (3.5-5.1); SODIUM (NA) 134 MEQ/L (136-145)
[2017-02-25] MEDS ORDERED: POTASSIUM CHLORIDE 10 MEQ CAP PO ONE (09:45)
--- NOTE | 2017-02-25 09:48 | HHI.FPPN ---
Subjective Remarks Patient seen and examined swelling. No acute events overnight. Patient reports feeling much improved today. Tolerating full liquid diet without nausea or vomiting. No bowel movements yesterday or today. No headache/dizziness, chest pain, shortness of breath, leg pain. (Rayray Byrd MD, R2) Objective Vitals Vital Signs Date Time Temp Pulse Resp B/P (MAP) Pulse Ox O2 Delivery O2 Flow Rate FiO2 02/25/17 08:00 98.2 77 18 129/81 (97) 99 02/25/17 06:04 98.5 67 18 145/89 (107) 100 02/25/17 02:36 99 02/25/17 02:00 109 02/25/17 01:25 98.5 69 20 148/88 (108) 100 02/24/17 22:23 98.6 81 20 142/89 (106) 100 02/24/17 16:52 97.3 76 18 137/84 (101) 99 02/24/17 12:55 99 02/24/17 12:42 98.4 73 18 123/81 (95) 99 I/O 02/24/17 02/24/17 02/24/17 02/25/17 02/25/17 02/25/17 06:59 14:59 22:59 06:59 14:59 22:59 Intake Total 1100 ml 1807 ml 100 ml 1000 ml Output Total 500 ml 100 ml 1050 ml Balance 1100 ml 1307 ml 0 ml -50 ml Intake Oral 480 ml IV Total 1100 ml 1327 ml 100 ml 1000 ml Output Urine Total 500 ml 100 ml 1050 ml # Voids 4 # Bowel Movements 1 (Rayray Byrd MD, R2) Result Diagram: 02/25/17 0701 02/25/17 07 Objective Remarks GENERAL: Well-nourished, cachectic patient. NAD CARDIOVASCULAR: Regular rate and rhythm without murmurs, gallops, or rubs. RESPIRATORY: Breath sounds equal bilaterally. No accessory muscle use. GASTROINTESTINAL: Abdomen soft, non-tender, nondistended. EXTREMITIES: No cyanosis, or edema. NEUROLOGICAL: Awake, alert. Non-focal. Procedures EGD performed 02/23/17 (Rayray Byrd MD, R2) A/P Assessment and Plan Mr. Kenyon is a 46-year-old male with no significant past medical history presented to the ED with hematemesis. Found to have Beryl- Bailey tear. Discharge Planning Pending GI clearance and workup (Rayray Byrd MD, R2) Attending Attestation Patient seen and examined. Case reviewed and discussed Agree with plan of care as discussed with me and documented in the resident note. (Ely Galvez MD) Problem List: (1) Beryl-Bailey tear ICD Codes: K22.6 - Gastro-esophageal laceration-hemorrhage syndrome Status: Acute Plan: Patient has a history of alcohol abuse. CT chest showed dilation of the esophagus was some questionable prominence at the GE junction region. EGD shows Beryl-Bailey tear. Hemoglobin stable. -IV fluids -Full liquid diet, advance as tolerated -Consulted GI, appreciate recommendations * EGD performed, showed nonbleeding Beryl-Bailey tear in the lower third of the esophagus, multiple medium-sized nonbleeding, shallow, alert regular shaped and clean-based ulcers in the gastric antrum. * Biopsy: negative for H. Pylori * Continue PPI -Ceftriaxone IV to prevent dissemination of bacteria -Blood cultures NGTD -Zofran when necessary for nausea (2) Alcohol abuse ICD Codes: F10.10 - Alcohol abuse, uncomplicated Status: Chronic Plan: Patient has been drinking one to two 4-packs of beer every day for many years. He has gone through withdrawal before. Macrocytosis on CBC. AST greater than ALT on hepatic function panel. CIWA scores remain low at 0 -CIWA protocol -Ativan as needed per protocol -Discussed risks of alcohol use and benefits of quitting. (3) BILLIE (mycobacterium avium-intracellulare) ICD Codes: A31.0 - Pulmonary mycobacterial infection Status: Resolved Plan: BILLIE seen on chest CT on 12/11/16 hospital visit. -Repeat CT thorax show persistent areas of scarring or atelectasis. The previously consolidation in the right midline had resolved. -Sputum cultures pending -HIV negative. -Hepatitis profile negative (4) FEN Status: Acute Plan: Fluids: Normal saline at 100 mL's per hour Electrolytes: Monitor and replete as needed Nutrition: FLD DVT prophylaxis: SCDs, chemoppx contraindicated due to GI bleed GI ppx: Protonix (Rayray Byrd MD, R2) Rayray Byrd MD, R2 Feb 25, 2017 09:48 Ely Galvez MD Feb 26, 2017 09:38
[2017-02-25] MEDS: MAGNESIUM SULFATE 1 GM PREMIX 100 ML IV SCH ×2 (10:21→11:32)
--- NOTE | 2017-02-25 14:10 | HHI.GIFU ---
Subjective Remarks Tolerating diet well, no more N/V or any other associated symptoms. Objective Vitals I&O Vital Signs Date Time Temp Pulse Resp B/P (MAP) Pulse Ox O2 Delivery O2 Flow Rate FiO2 02/25/17 12:00 98.4 87 18 101/83 (89) 100 02/25/17 08:00 98.2 77 18 129/81 (97) 99 02/25/17 06:04 98.5 67 18 145/89 (107) 100 02/25/17 02:36 99 02/25/17 02:00 109 02/25/17 01:25 98.5 69 20 148/88 (108) 100 02/24/17 22:23 98.6 81 20 142/89 (106) 100 02/24/17 16:52 97.3 76 18 137/84 (101) 99 I/O 02/24/17 02/24/17 02/24/17 02/25/17 02/25/17 02/25/17 07:00 15:00 23:00 07:00 15:00 23:00 Intake Total 1100 ml 1807 ml 100 ml 1000 ml Output Total 500 ml 100 ml 1050 ml Balance 1100 ml 1307 ml 0 ml -50 ml Intake Oral 480 ml IV Total 1100 ml 1327 ml 100 ml 1000 ml Output Urine Total 500 ml 100 ml 1050 ml # Voids 4 # Bowel Movements 1 Laboratory Laboratory Tests Test 02/25/17 07:01 White Blood Count 6.4 Red Blood Count 3.76 Hemoglobin 13.1 Hematocrit 39.1 Mean Corpuscular Volume 104.1 Mean Corpuscular Hemoglobin 34.8 Mean Corpuscular Hemoglobin Concent 33.4 Red Cell Distribution Width 13.5 Platelet Count 140 Mean Platelet Volume 9.4 Blood Urea Nitrogen LESS THAN 1 Creatinine 0.69 Random Glucose 99 Calcium Level 8.9 Phosphorus Level 3.0 Magnesium Level 1.3 Sodium Level 134 Potassium Level 3.1 Chloride Level 99 Carbon Dioxide Level 24.7 Anion Gap 10 Estimat Glomerular Filtration Rate 151 Thyroid Stimulating Hormone 3rd Gen 1.120 Date/Time Source Procedure Growth Status 02/23/17 19:30 Blood Peripheral Aerobic Blood Culture - Preliminary NO GROWTH IN 2 DAYS Resulted 02/23/17 19:30 Blood Peripheral Anaerobic Blood Culture - Preliminary NO GROWTH IN 2 DAYS Resulted 02/25/17 10:45 Sputum Expectorated Sputum Fungal Smear Pending Received 02/25/17 10:45 Sputum Expectorated Sputum Fungal Culture Pending Received Physical Exam HEENT: Pupils round and reactive to light; normocephalic; atraumatic; no jaundice. Throat is clear. NECK: Neck is supple, no JVD, no lymphadenopathy. CHEST: Chest is clear to auscultation and percussion. CARDIAC: Regular rate and rhythm with no murmur gallop or rubs. ABDOMEN: Soft, nondistended, nontender; no hepatosplenomegaly; bowel sounds are present in all four quadrants. EXTREMITIES: No clubbing, cyanosis, or edema. SKIN: Normal; no rash; no jaundice. SEROLOGY TEACHER: No focal deficits; alert and oriented times three. Assessment and Plan Physician Comments 1. Beryl Bailey Tear of the lower esophagus, manifested as hematemesis started as vomiting food contents followed by coffee-ground material and last episode of fresh blood 2. History of heavy alcohol use and possible alcoholism. 3. No history of NSAID use. 4. No previous endoscopy evaluation. RECOMMENDATIONS -Advance diet as tolerated. - Continue PPI. Continue - Supportive care. - Alcohol cessation program. - Supportive care. - Stable from GI point of view, will sign off for now, please notify us if needed. Syed Valdes MD Feb 25, 2017 14:10
[2017-02-26] VITALS (7 sets, daily range): BP systolic 101–156; BP diastolic 65–99; PULSE 64–111; RESP 16–20; TEMP 98.2–98.8; O2SAT 99–100
[2017-02-26] MEDS: PANTOPRAZOLE INJ 80 MG in SODIUM CHLORIDE 0.9% INJ 100 ML IV SCH ×2 (00:52→08:30)
[2017-02-26] MEDS: SODIUM CHLOR 0.9% 1000 ML INJ 1,000 ML IV SCH ×2 (04:42→07:29)
[2017-02-26] MEDS: SODIUM CHLORIDE 0.9% FLUSH 10 ML FLUSH IV FLUSH SCH ×2 (08:30→21:00)
--- NOTE | 2017-02-26 10:58 | HHI.FPPN ---
Subjective Remarks Patient seen and examined this morning. Patient states she got a little hypoglycemic overnight, felt a little dizzy and nauseous. But today, feels better. States his hiccups have returned. Denies any vomiting or diarrhea. Tolerating regular diet. Otherwise, no complaints/concerns this morning. No chest pain, shortness of breath, abdominal pain, leg pain. (Rayray Byrd MD, R2) Objective Vitals Vital Signs Date Time Temp Pulse Resp B/P (MAP) Pulse Ox O2 Delivery O2 Flow Rate FiO2 02/26/17 08:00 98.8 111 20 101/73 (82) 99 Manual Cuff/Auscultation 02/26/17 05:10 150/90 (110) 02/26/17 04:00 98.6 81 20 151/99 (116) 100 02/26/17 03:40 65 02/26/17 00:00 98.8 64 20 99 02/25/17 21:40 21 02/25/17 20:00 99.1 83 20 133/89 (104) 100 02/25/17 16:00 97.7 77 20 139/82 (101) 99 02/25/17 12:00 98.4 87 18 101/83 (89) 100 I/O 02/25/17 02/25/17 02/25/17 02/26/17 02/26/17 02/26/17 07:00 15:00 23:00 07:00 15:00 23:00 Intake Total 1000 ml 480 ml 1320 ml Output Total 1050 ml 300 ml 400 ml Balance -50 ml 180 ml 1320 ml -400 ml Intake Oral 480 ml IV Total 1000 ml 1320 ml Output Urine Total 1050 ml 300 ml 400 ml # Voids 2 1 # Bowel Movements 0 (Rayray Byrd MD, R2) Result Diagram: 02/25/17 0702/25/17 07 Objective Remarks GENERAL: Well-nourished, cachectic patient. NAD CARDIOVASCULAR: Regular rate and rhythm without murmurs, gallops, or rubs. RESPIRATORY: Breath sounds equal bilaterally. No accessory muscle use. GASTROINTESTINAL: Abdomen soft, non-tender, nondistended. BS+ EXTREMITIES: No cyanosis, or edema. NEUROLOGICAL: Awake, alert. Non-focal. Procedures EGD performed 02/23/17 (Rayray Byrd MD, R2) A/P Assessment and Plan Mr. Kenyon is a 46-year-old male with no significant past medical history presented to the ED with hematemesis. Found to have Beryl- Bailey tear. Discharge Planning Cleared by GI; awaiting hypoglycemia resolution (Rayray Byrd MD, R2) Attending Attestation Patient seen and examined. Case reviewed and discussed Agree with plan of care as discussed with me and documented in the resident note. (Ely Galvez MD) Problem List: (1) Beryl-Bailey tear ICD Codes: K22.6 - Gastro-esophageal laceration-hemorrhage syndrome Status: Acute Plan: Patient has a history of alcohol abuse. CT chest showed dilation of the esophagus was some questionable prominence at the GE junction region. EGD shows Beryl-Bailey tear. Hemoglobin stable. -IV fluids -Regular diet -Consulted GI, appreciate recommendations * EGD performed, showed nonbleeding Beryl-Bailey tear in the lower third of the esophagus, multiple medium-sized nonbleeding, shallow, alert regular shaped and clean-based ulcers in the gastric antrum. * Biopsy: negative for H. Pylori * Continue PPI -Blood cultures NGTD -Zofran when necessary for nausea (2) Alcohol abuse ICD Codes: F10.10 - Alcohol abuse, uncomplicated Status: Chronic Plan: Patient has been drinking one to two 4-packs of beer every day for many years. He has gone through withdrawal before. Macrocytosis on CBC. AST greater than ALT on hepatic function panel. CIWA scores remain low at 0 -CIWA protocol -Ativan as needed per protocol -Discussed risks of alcohol use and benefits of quitting. (3) BILLIE (mycobacterium avium-intracellulare) ICD Codes: A31.0 - Pulmonary mycobacterial infection Status: Resolved Plan: BILLIE seen on chest CT on 12/11/16 hospital visit. -Repeat CT thorax show persistent areas of scarring or atelectasis. The previously consolidation in the right midline had resolved. -Sputum cultures pending -HIV negative. -Hepatitis profile negative (4) FEN Status: Acute Plan: Fluids: Normal saline at 100 mL's per hour Electrolytes: Monitor and replete as needed Nutrition: Regular diet DVT prophylaxis: SCDs, chemoppx contraindicated due to GI bleed GI ppx: Protonix (Rayray Byrd MD, R2) Rayray Byrd MD, R2 Feb 26, 2017 10:57 Ely Galvez MD Mar 01, 2017 16:33
[2017-02-26] MEDS ORDERED: CYCLOBENZAPRINE HCL 10 MG TAB PO PRN (12:00)
[2017-02-26 18:34] LABS: AUTOMATED NEUTROPHIL # 3.3 TH/MM3 (1.8-7.7); BASOPHIL % 0.7 % (0.0-2.0); EOSINOPHIL # 0.1 TH/MM3 (0-0.4); EOSINOPHIL % 1.1 % (0.0-4.0); HEMATOCRIT 38.7 % (39.0-51.0); HEMO FLAGS DIFF FINAL; LYMPH % 25.4 % (9.0-44.0); LYMPHOCYTE # 1.5 TH/MM3 (1.0-4.8); MEAN CELL VOLUME 103.9 FL (80.0-100.0); MEAN CORPUSCULAR HGB CONC 33.7 % (32.0-36.0); MONO % 17.9 % (0.0-8.0); NEUT % 54.9 % (16.0-70.0); PLATELET COUNT 152 TH/MM3 (150-450); RED BLOOD COUNT 3.73 MIL/MM3 (4.50-5.90); RED CELL DISTRIBUTION WIDTH 13.3 % (11.6-17.2)
[2017-02-26 18:48] LABS: BICARBONATE 27.8 MEQ/L (21.0-32.0); MAGNESIUM 1.6 MG/DL (1.5-2.5); POTASSIUM 3.8 MEQ/L (3.5-5.1)
[2017-02-26 21:42] LABS: BETA-HYDROXYBUTYRATE 0.05 MMOL/L (0.00-0.39)
[2017-02-27] MEDS: PANTOPRAZOLE INJ 80 MG in SODIUM CHLORIDE 0.9% INJ 100 ML IV SCH ×2 (00:58→10:20)
[2017-02-27 08:00] VITALS: BP 123/58; PULSE 104; RESP 16; TEMP 98.5; O2SAT 98
[2017-02-27 08:16] VITALS: PULSE 101
[2017-02-27 09:46] VITALS: O2SAT 98
[2017-02-27] MEDS: SODIUM CHLORIDE 0.9% FLUSH 10 ML FLUSH IV FLUSH SCH ×2 (10:20→21:33)
[2017-02-27 12:00] VITALS: BP 116/77; PULSE 97; RESP 18; TEMP 98.4; O2SAT 97
--- NOTE | 2017-02-27 13:59 | HHI.FPPN ---
Subjective Remarks No acute events overnight. He had one self-induced episode of vomiting this morning due to severe hiccups. No blood in vomit reported. Besides that he has no complaints this morning. He reports no bowel movements overnight. No chest pain or shortness of breath today. He is tearful today and discusses a brother he recently lost about a week ago. Discussed his drinking alcohol being related to feelings of sadness. He does continue to enjoy hobbies, especially fishing. We discussed starting Remeron to help with his appetite and moods. No other problems reported today. (Troy Yoder MD R3) Objective Vitals Vital Signs Date Time Temp Pulse Resp B/P (MAP) Pulse Ox O2 Delivery O2 Flow Rate FiO2 02/27/17 12:00 98.4 97 18 116/77 (90) 97 02/27/17 09:46 98 02/27/17 08:16 101 02/27/17 08:00 98.5 104 16 123/58 (79) 98 02/26/17 18:04 21 02/26/17 16:00 98.6 79 16 134/74 (94) 100 I/O 02/26/17 02/26/17 02/26/17 02/27/17 02/27/17 02/27/17 07:00 15:00 23:00 07:00 15:00 23:00 Intake Total 10.1 ml Output Total 400 ml Balance -400 ml 10.1 ml IV Total 10.1 ml Output Urine Total 400 ml # Voids 3 # Bowel Movements 0 (Troy Yoder MD R3) Result Diagram: 02/26/17 1755 02/26/171754 Objective Remarks GENERAL: Cachectic but improving since admission. HEENT: Has submandibular lymphadenopathy with poor dentition and several broken teeth CARDIOVASCULAR: Regular rate and rhythm without murmurs, gallops, or rubs. RESPIRATORY: Breath sounds equal bilaterally. No accessory muscle use. GASTROINTESTINAL: Abdomen soft, non-tender, nondistended. BS+ EXTREMITIES: No cyanosis, or edema. NEUROLOGICAL: Awake, alert. Non-focal. Procedures EGD performed 02/23/17 (Troy Yoder MD R3) A/P Assessment and Plan 46-year-old male with no significant past medical history who presented to the ED with hematemesis. Found to have Beryl-Bailey tear. Also with night sweats, cachexia, and weight loss that is being worked up now. Discharge Planning Pending workup for cachexia, night sweats, weight loss. (Troy Yoder MD R3) Attending Attestation Patient seen and examined. Case reviewed and discussed Agree with plan of care as discussed with me and documented in the resident note. (Ely Galvez MD) Problem List: (1) Submandibular lymphadenopathy ICD Codes: R59.0 - Localized enlarged lymph nodes Status: Acute Plan: Submandibular lymphadenopathy. Has poor dentition, but given significant unintentional weight loss and night sweats, would like to rule out a malignant process. - CT soft tissues of the neck - CT abdomen - Had CT chest that showed no malignant process - May require lymph node biopsy depending on above results (2) Beryl-Bailey tear ICD Codes: K22.6 - Gastro-esophageal laceration-hemorrhage syndrome Status: Acute Plan: Patient has a history of alcohol abuse. CT chest showed dilation of the esophagus with some questionable prominence at the GE junction region. EGD performed, showed nonbleeding Beryl-Bailey tear in the lower third of the esophagus, multiple medium-sized nonbleeding, shallow, alert regular shaped and clean-based ulcers in the gastric antrum. Hemoglobin stable. Biopsy negative for H. Pylori. He self-induces vomiting due to severe hiccups. -Consulted GI, appreciate recommendations - Continue PPI, decreased down to pantoprazole 40 mg IV bid -Zofran when necessary for nausea - Cyclobenzaprine for hiccups. (3) Hypoglycemia ICD Codes: E16.2 - Hypoglycemia, unspecified Status: Acute Plan: Unexplained hypoglycemic episodes while in the hospital. - Insulin studies pending: c-peptide, proinsulin, insulin, insulin antibody, beta-hydroxybutyrate - Regular accuchecks - Regular diet with double portions (4) Alcohol abuse ICD Codes: F10.10 - Alcohol abuse, uncomplicated Status: Chronic Plan: Patient has been drinking one to two 4-packs of beer every day for many years. He has gone through withdrawal before. Macrocytosis on CBC. AST greater than ALT on hepatic function panel. CIWA scores remain low at 0 -Multivitamin, thiamine, folic acid - Would benefit from outpatient counseling/rehab, case management on board (5) BILLIE (mycobacterium avium-intracellulare) ICD Codes: A31.0 - Pulmonary mycobacterial infection Status: Resolved Plan: BILLIE seen on chest CT on 12/11/16 hospital visit. -Repeat CT thorax show persistent areas of scarring or atelectasis. The previously consolidation in the right midline had resolved. -Sputum cultures pending -HIV negative. -Hepatitis profile negative (6) FEN Status: Acute Plan: Fluids: PO fluids Electrolytes: Monitor and replace as needed Nutrition: Regular diet, double portions, with supplements DVT prophylaxis: SCDs, chemoppx contraindicated due to GI bleed GI ppx: Protonix 40 mg IV bid (Troy Yoder MD R3) Troy Yoder MD R3 Feb 27, 2017 13:59 Ely Galvez MD Mar 01, 2017 16:33
[2017-02-27] MEDS: PANTOPRAZOLE SODIUM 40 MG VIAL IV PUSH SCH ×2 (14:00→15:43)
[2017-02-27] MEDS: MULTIVITAMIN TAB PO SCH (15:42)
[2017-02-27] MEDS: THIAMINE HCL 100 MG TAB PO SCH (15:42)
[2017-02-27] MEDS: CYCLOBENZAPRINE HCL 10 MG TAB PO SCH ×2 (15:42→23:32)
[2017-02-27] MEDS: FOLIC ACID 1 MG TAB PO SCH (15:43)
[2017-02-27 16:00] VITALS: BP 125/66; PULSE 90; RESP 18; TEMP 97.3; O2SAT 100
[2017-02-27 16:26] LABS: MEAN CELL VOLUME 103.3 FL (80.0-100.0); MEAN CORPUSCULAR HEMOGLOBIN 34.1 PG (27.0-34.0); PLATELET COUNT 186 TH/MM3 (150-450); RED BLOOD COUNT 3.68 MIL/MM3 (4.50-5.90); RED CELL DISTRIBUTION WIDTH 13.2 % (11.6-17.2); REVIEW FLAG FINAL; WHITE BLOOD COUNT 5.8 TH/MM3 (4.0-11.0)
[2017-02-27 16:49] LABS: BICARBONATE 28.4 MEQ/L (21.0-32.0); POTASSIUM 3.8 MEQ/L (3.5-5.1)
[2017-02-27] MEDS ORDERED: IOHEXOL 350 MG/ML 10 ML VIAL (for RAD DIAG) IVCONTRAST ONE (18:38)
--- NOTE | 2017-02-27 19:06 | RADRPT ---
EXAM DATE/TIME: 02/27/2017 18:38 [facility] COMPARISON: No previous studies available for comparison. INDICATIONS : Patient is coughing up blood; evaluate for lymphadenopathy. IV CONTRAST: 30 cc Omnipaque 350 (iohexol) IV RADIATION DOSE: 13.31 CTDIvol (mGy) MEDICAL HISTORY : None SURGICAL HISTORY : Lt hip surgery ENCOUNTER: Initial ACUITY: 2 days PAIN SCALE: 0/10 LOCATION: neck TECHNIQUE: Volumetric scanning of the neck was performed. Using automated exposure control and adjustment of th e mA and/or kV according to patient size, radiation dose was kept as low as reasonably achievable to obtain optimal diagnostic quality images. DICOM format image data is available electronically for r eview and comparison. FINDINGS: The nasopharynx and oropharynx are unremarkable. Base of the tongue appears normal. Level of the true vocal cords shows mild asymmetry without focal mass. There is minimal nonspecific adenopathy in the right and left neck. Minimal adenopathy is also seen in the posterior triangle as well. The largest lymph node measures 1.5 CM at the angle of the mandible. The thyroid is unremarkable Lung apex is clear. CONCLUSION: Nonspecific adenopathy anterior and posterior neck. The largest is on the right at t he angle the mandible. Ernie Contreras MD FACR on February 27, 2017 at 19:02 Board Certified Radiologist. This report was verified electronically.
--- NOTE | 2017-02-27 19:08 | RADRPT ---
EXAM DATE/TIME: 02/27/2017 18:43 [place] COMPARISON: No previous studies available for comparison. INDICATIONS : Abdominal pain and coughing up blood. IV CONTRAST: 70 cc Omnipaque 350 (iohexol) IV ORAL CONTRAST: No oral contrast ingested. RADIATION DOSE: 4.51 CTDIvol (mGy) MEDICAL HISTORY : None SURGICAL HISTORY : Lt hip surgery ENCOUNTER: Initial ACUITY: 2 days PAIN SCALE: 5/10 LOCATION: abdomen TECHNIQUE: Volumetric scanning of the abdomen and pelvis was performed. Using automated exposure control and ad justment of the mA and/or kV according to patient size, radiation dose was kept as low as reasonably achievable to obtain optimal diagnostic quality images. DICOM format image data is available electro nically for review and comparison. FINDINGS: Lung base are clear. The liver, spleen, pancreas and adrenals are unremarkable. There is no lillian hepatis adenopathy There is symmetrical renal function without renal mass There is no retroperitoneal adenopathy Region the cecum and terminal unremarkable Pelvic contents appear normal There is no inguinal adenopathy There is no obturator adenopathy Review of bone windows reveals mild degenerative changes. CONCLUSION: Negative for significant adenopathy. No abnormality is appreciated. Ernie Contreras MD FACR on February 27, 2017 at 19:04 Board Certified Radiologist. This report was verified electronically.
[2017-02-27 20:00] VITALS: BP 135/60; PULSE 106; RESP 18; TEMP 98.2; O2SAT 97
[2017-02-27] MEDS: MIRTAZAPINE 15 MG TAB PO SCH (21:30)
[2017-02-28] VITALS: BP 122/70; PULSE 80; RESP 16; TEMP 98.2; O2SAT 98
[2017-02-28] MEDS: PANTOPRAZOLE SODIUM 40 MG VIAL IV PUSH SCH ×2 (02:33→13:30)
[2017-02-28 04:00] VITALS: BP 110/75; PULSE 115; RESP 18; TEMP 97.9; O2SAT 100
[2017-02-28] MEDS: CYCLOBENZAPRINE HCL 10 MG TAB PO SCH ×3 (05:54→22:40)
[2017-02-28 08:00] VITALS: BP 133/68; PULSE 116; RESP 17; TEMP 98.2; O2SAT 96
[2017-02-28 08:15] LABS: AUTOMATED NEUTROPHIL # 3.5 TH/MM3 (1.8-7.7); BASOPHIL % 0.5 % (0.0-2.0); EOSINOPHIL # 0.1 TH/MM3 (0-0.4); HEMATOCRIT 38.4 % (39.0-51.0); HEMO FLAGS DIFF FINAL; LYMPH % 17.9 % (9.0-44.0); LYMPHOCYTE # 1.1 TH/MM3 (1.0-4.8); MEAN CELL VOLUME 102.3 FL (80.0-100.0); MEAN CORPUSCULAR HEMOGLOBIN 34.3 PG (27.0-34.0); MEAN CORPUSCULAR HGB CONC 33.6 % (32.0-36.0); MONO % 22.6 % (0.0-8.0); PLATELET COUNT 206 TH/MM3 (150-450); RED BLOOD COUNT 3.75 MIL/MM3 (4.50-5.90); RED CELL DISTRIBUTION WIDTH 13.7 % (11.6-17.2)
[2017-02-28 08:37] LABS: BICARBONATE 28.5 MEQ/L (21.0-32.0); POTASSIUM 3.6 MEQ/L (3.5-5.1)
[2017-02-28] MEDS: FOLIC ACID 1 MG TAB PO SCH (08:53)
[2017-02-28] MEDS: MULTIVITAMIN TAB PO SCH (08:53)
[2017-02-28] MEDS: THIAMINE HCL 100 MG TAB PO SCH (08:53)
[2017-02-28] MEDS: SODIUM CHLORIDE 0.9% FLUSH 10 ML FLUSH IV FLUSH SCH ×2 (08:53→22:40)
[2017-02-28 12:44] VITALS: BP_SYST 60; PULSE 97; RESP 16; TEMP 98.2; O2SAT 98
--- NOTE | 2017-02-28 15:48 | HHI.FPPN ---
Subjective Remarks Mr. Johnson says that he is doing well this morning. His hiccups have gone away with the new medication and he has not vomited. He also has not had any hypoglycemic episodes. He is tolerating his new diet well. When informed about the results of the neck CT he stated that he is willing to go forward with lymph node biopsy. No fevers or chills, no dizziness or lightheadedness, no shortness of breath, no abdominal pain, no nausea or vomiting, no constipation or diarrhea. (Bhumi Durham MD R1) Objective Vitals Vital Signs Date Time Temp Pulse Resp B/P (MAP) Pulse Ox O2 Delivery O2 Flow Rate FiO2 02/28/17 12:44 98.2 97 16 60/ 98 02/28/17 08:00 98.2 116 17 133/68 (89) 96 02/28/17 04:00 97.9 115 18 110/75 (87) 100 02/28/17 00:00 98.2 80 16 122/70 (87) 98 02/27/17 20:00 98.2 106 18 135/60 (85) 97 02/27/17 16:00 97.3 90 18 125/66 (85) 100 I/O 02/27/17 02/27/17 02/27/17 02/28/17 02/28/17 02/28/17 07:00 15:00 23:00 07:00 15:00 23:00 Intake Total 10.1 ml 2040 ml 360 ml Balance 10.1 ml 2040 ml 360 ml Intake Oral 2040 ml 360 ml IV Total 10.1 ml # Voids 10 1 # Bowel Movements 2 (Bhumi Durham MD R1) Result Diagram: 02/28/17 0718 02/28/17 0718 Objective Remarks GENERAL: Cachectic male sitting in bed in no apparent distress. HEENT: Has submandibular lymphadenopathy with poor dentition and several broken teeth CARDIOVASCULAR: Regular rate and rhythm without murmurs, gallops, or rubs. RESPIRATORY: Breath sounds equal bilaterally. No accessory muscle use. GASTROINTESTINAL: Abdomen soft, non-tender, nondistended. BS+ EXTREMITIES: No cyanosis, or edema. NEUROLOGICAL: Awake, alert. Non-focal. Procedures EGD performed 02/23/17 (Bhumi Durham MD R1) A/P Assessment and Plan 46-year-old male with no significant past medical history who presented to the ED with hematemesis. Found to have Beryl-Bailey tear. Also with night sweats, cachexia, and weight loss that is being worked up now. Discharge Planning Pending workup for cachexia, night sweats, weight loss. (Bhumi Durham MD R1) Attending Attestation Patient seen and examined. Case reviewed and discussed Agree with plan of care as discussed with me and documented in the resident note. (Ely Galvez MD) Problem List: (1) Submandibular lymphadenopathy ICD Codes: R59.0 - Localized enlarged lymph nodes Status: Acute Plan: Submandibular lymphadenopathy. Has poor dentition, but given significant unintentional weight loss and night sweats, would like to rule out a malignant process. CT soft tissues of the neck showed large lymph node on the right angle of the mandible of 1.5 cm in size. - Spoke with Dr. Alves of radiology. He states that the lymph node at the right angle of the mandible is easily assessable without CT or ultrasound guidance. - Consulted invasive radiology, appreciate recommendations - Lymph node biopsy pending - Consult oncology, appreciate recommendations (2) Beryl-Bailey tear ICD Codes: K22.6 - Gastro-esophageal laceration-hemorrhage syndrome Status: Acute Plan: Patient has a history of alcohol abuse. CT chest showed dilation of the esophagus with some questionable prominence at the GE junction region. EGD performed, showed nonbleeding Beryl-Bailey tear in the lower third of the esophagus, multiple medium-sized nonbleeding, shallow, alert regular shaped and clean-based ulcers in the gastric antrum. Hemoglobin stable. Biopsy negative for H. Pylori. He self-induces vomiting due to severe hiccups. -Consulted GI, appreciate recommendations - Continue PPI, decreased down to pantoprazole 40 mg IV bid -Zofran when necessary for nausea - Cyclobenzaprine for hiccups. (3) Hypoglycemia ICD Codes: E16.2 - Hypoglycemia, unspecified Status: Acute Plan: Unexplained hypoglycemic episodes while in the hospital. - Insulin studies pending: c-peptide, proinsulin, insulin, insulin antibody, beta-hydroxybutyrate - Regular accuchecks - Regular diet with double portions (4) Alcohol abuse ICD Codes: F10.10 - Alcohol abuse, uncomplicated Status: Chronic Plan: Patient has been drinking one to two 4-packs of beer every day for many years. He has gone through withdrawal before. Macrocytosis on CBC. AST greater than ALT on hepatic function panel. CIWA scores remain low at 0 -Multivitamin, thiamine, folic acid - Would benefit from outpatient counseling/rehab, case management on board (5) BILLIE (mycobacterium avium-intracellulare) ICD Codes: A31.0 - Pulmonary mycobacterial infection Status: Resolved Plan: BILLIE seen on chest CT on 12/11/16 hospital visit. -Repeat CT thorax show persistent areas of scarring or atelectasis. The previously consolidation in the right midline had resolved. -Sputum cultures pending -HIV negative. -Hepatitis profile negative (6) FEN Status: Acute Plan: Fluids: PO fluids Electrolytes: Monitor and replace as needed Nutrition: Regular diet, double portions, with supplements DVT prophylaxis: SCDs, chemoppx contraindicated due to GI bleed GI ppx: Protonix 40 mg IV bid (Bhumi Durham MD R1) Bhumi Durham MD R1 Feb 28, 2017 15:48 Ely Galvez MD Mar 01, 2017 16:34
[2017-02-28 16:00] VITALS: BP 112/61; PULSE 90; RESP 18; TEMP 97.6; O2SAT 96
--- NOTE | 2017-02-28 16:01 | HHI.PR ---
Addendum to Inpatient Note Addendum Reason: Additional Documentation Additional Information Off service note Mr. Orozco is a 46-year-old male with a past history of alcohol use who presented to the ED on 02/22 with hematemesis. Upper GI bleed was suspected. GI was consulted. Patient was scoped the next day. A nonbleeding Beryl-Bailey tear was found in the lower third of the esophagus. Also, multiple medium-sized nonbleeding, shallow, irregular shaped and clean-based ulcers were found in the gastric antrum. Biopsies were taken which showed antral mucosa with moderate active chronic gastritis and acute ulceration. Stain was negative for Helicobacter. Patient was also chronically hypoglycemic during his stay. He has assumed regular blood glucose readings with a regular diet of double portions and Boost supplementation. Patient was concerned about significant lymphadenopathy of his right jaw yesterday. Soft tissue CT of the neck was performed and 1.5 cm enlarged lymph node was found at the right angle of mandible. Invasive radiology was consulted today for a biopsy of this particular lymph node. Oncology was also consulted as patient has had significant weight loss of 20 pounds in the past 2 months ( since last ED visit on 12/11) along with night sweats. We have concern for an underlying malignancy and would like to rule this out. Bhumi Durham MD R1 Feb 28, 2017 16:01
[2017-02-28 21:03] VITALS: BP 149/72; PULSE 98; RESP 20; TEMP 98.6; O2SAT 100
[2017-02-28] MEDS: MIRTAZAPINE 15 MG TAB PO SCH (22:40)
[2017-03-01] VITALS: BP 110/66; PULSE 97; RESP 18; TEMP 98.6; O2SAT 98
[2017-03-01] MEDS: PANTOPRAZOLE SODIUM 40 MG VIAL IV PUSH SCH ×2 (03:02→14:08)
[2017-03-01 04:00] VITALS: BP 100/56; PULSE 118; RESP 18; TEMP 98.3; O2SAT 97
[2017-03-01] MEDS: CYCLOBENZAPRINE HCL 10 MG TAB PO SCH ×2 (05:58→14:08)
[2017-03-01 08:00] VITALS: BP 102/67; PULSE 99; RESP 18; TEMP 98.1; O2SAT 98
[2017-03-01 08:16] LABS: AUTOMATED NEUTROPHIL # 4.4 TH/MM3 (1.8-7.7); BASOPHIL % 0.5 % (0.0-2.0); EOSINOPHIL % 0.6 % (0.0-4.0); HEMATOCRIT 38.7 % (39.0-51.0); HEMO FLAGS DIFF FINAL; LYMPH % 19.4 % (9.0-44.0); LYMPHOCYTE # 1.5 TH/MM3 (1.0-4.8); MEAN CELL VOLUME 103.3 FL (80.0-100.0); MEAN CORPUSCULAR HEMOGLOBIN 35.9 PG (27.0-34.0); MEAN CORPUSCULAR HGB CONC 34.8 % (32.0-36.0); MONO % 22.5 % (0.0-8.0); PLATELET COUNT 231 TH/MM3 (150-450); RED BLOOD COUNT 3.75 MIL/MM3 (4.50-5.90); RED CELL DISTRIBUTION WIDTH 13.6 % (11.6-17.2); WHITE BLOOD COUNT 7.6 TH/MM3 (4.0-11.0)
[2017-03-01 08:23] LABS: BICARBONATE 28.5 MEQ/L (21.0-32.0); POTASSIUM 3.5 MEQ/L (3.5-5.1)
[2017-03-01] MEDS: MULTIVITAMIN TAB PO SCH (09:20)
[2017-03-01] MEDS: THIAMINE HCL 100 MG TAB PO SCH (09:20)
[2017-03-01] MEDS: FOLIC ACID 1 MG TAB PO SCH (09:20)
[2017-03-01] MEDS: SODIUM CHLORIDE 0.9% FLUSH 10 ML FLUSH IV FLUSH SCH (09:21)
[2017-03-01 12:00] VITALS: BP 123/78; PULSE 98; RESP 18; TEMP 98.1; O2SAT 98
--- NOTE | 2017-03-01 13:20 | HHI.FPPN ---
Subjective Remarks Mr Orozco looked well today and was walking in his room. Dr Marquez saw the pt and reports the enlarged lymph node was actually a zit/pustule and did not require biopsy. Pt reports hiccups controlled with Flexeril and believes he could pay for flexeril at [facility]. He is able to take PO. States he feels ready to be discharged and is willing to follow-up his biopsy results with GI. Pt will likely need transport though. Denies CP, SOB, N/V/D, and emesis. (Santiago Rubio MD R1) Objective Vitals Vital Signs Date Time Temp Pulse Resp B/P (MAP) Pulse Ox O2 Delivery O2 Flow Rate FiO2 03/01/17 08:00 98.1 99 18 102/67 (79) 98 03/01/17 04:00 98.3 118 18 100/56 (71) 97 03/01/17 00:00 98.6 97 18 110/66 (81) 98 02/28/17 21:03 98.6 98 20 149/72 (97) 100 02/28/17 16:00 97.6 90 18 112/61 (78) 96 I/O 02/28/17 02/28/17 02/28/17 03/01/17 03/01/17 03/01/17 07:00 15:00 23:00 07:00 15:00 23:00 Intake Total 360 ml 480 ml 360 ml Balance 360 ml 480 ml 360 ml Intake Oral 360 ml 480 ml 360 ml # Voids 1 2 (Santiago Rubio MD R1) Result Diagram: 03/01/17 0736 03/01/17 0736 Objective Remarks GENERAL: Cachectic male sitting on the edge of bed in no apparent distress. HEENT: Submandibular lymphadenopathy vs swelling appears markedly improved; poor dentition and several broken teeth CARDIOVASCULAR: Regular rate and rhythm without murmurs, gallops, or rubs. RESPIRATORY: Breath sounds equal bilaterally. No accessory muscle use. No increased WOB. GASTROINTESTINAL: Abdomen soft, non-tender, nondistended. BS+ EXTREMITIES: No cyanosis, or edema. NEUROLOGICAL: Awake, alert. Non-focal. SKIN: small excoriated lesions on his bilateral thighs; 0.5 x 0.5 well- circumscribed raised papule on right anterolateral neck just below the mandibular angle. Procedures EGD performed 02/23/17 Stomach Antral Biopsy Path report (03/01/2017): FINAL DIAGNOSIS: ANTRAL ULCERS, BIOPSY: ANTRAL MUCOSA WITH MODERATE ACTIVE CHRONIC GASTRITIS AND ACUTE ULCERATION. A GALEN STAIN IS NEGATIVE FOR HELICOBACTER. (Santiago Rubio MD R1) Urinary Catheter: No (Santiago Rubio MD R1) A/P Assessment and Plan 46-year-old male with no significant past medical history who presented to the ED with hematemesis. Found to have Beryl-Bailey tear. Also with night sweats, cachexia, and weight loss that is being worked up now. Pt ready for discharge and can be reached at [phone]. -Case management consulted and request help for: --Help to get pt a blue card and on pt assistance if available (otherwise pt will be lost to follow-up) --Pt may require transportation Discharge Planning Pending workup for cachexia, night sweats, weight loss. (Santiago Rubio MD R1) Attending Attestation Patient seen and examined. Case reviewed and discussed Agree with plan of care as discussed with me and documented in the resident note. (Ely Galvez MD) Problem List: (1) Submandibular lymphadenopathy ICD Codes: R59.0 - Localized enlarged lymph nodes Status: Acute Plan: Submandibular lymphadenopathy vs swelling is markedly resolved. Has poor dentition, but given significant unintentional weight loss and night sweats, would like to rule out a malignant process. CT soft tissues of the neck showed large lymph node on the right angle of the mandible of 1.5 cm in size. -Dr Marquez examined pt and finds enlarged lymph node to be a pustule -No further workup required (2) Beryl-Bailey tear ICD Codes: K22.6 - Gastro-esophageal laceration-hemorrhage syndrome Status: Acute Plan: Patient has a history of alcohol abuse. CT chest showed dilation of the esophagus with some questionable prominence at the GE junction region. EGD performed, showed nonbleeding Beryl-Bailey tear in the lower third of the esophagus, multiple medium-sized nonbleeding, shallow, alert regular shaped and clean-based ulcers in the gastric antrum consistent with gastritis and negative for H. pylori. Hemoglobin stable. He self-induces vomiting due to severe hiccups. -Consulted GI who performed an EGD -Stop pantoprazole 40 mg IV bid -Start Zantac 150mg BID vs PPI due to pt's inability to pay for medication -Zofran PRN for nausea -Cyclobenzaprine 10 mg/day for hiccups -Pt counselled to refrain from EtOH (3) Hypoglycemia ICD Codes: E16.2 - Hypoglycemia, unspecified Status: Acute Plan: Unexplained hypoglycemic episodes while in the hospital. - Insulin studies (c-peptide, proinsulin, insulin, beta-hydroxybutyrate) negative; insulin antibody pending - Regular accuchecks - Regular diet with double portions (4) Alcohol abuse ICD Codes: F10.10 - Alcohol abuse, uncomplicated Status: Chronic Plan: Patient has been drinking one to two 4-packs of beer every day for many years. He has gone through withdrawal before Macrocytosis on CBC. AST greater than ALT on hepatic function panel. CIWA scores remain low at 0 -Multivitamin, thiamine, folic acid -Would benefit from outpatient counseling/rehab, case management on board (5) BILLIE (mycobacterium avium-intracellulare) ICD Codes: A31.0 - Pulmonary mycobacterial infection Status: Resolved Plan: BILLIE seen on chest CT on 12/11/16 hospital visit. -Repeat CT thorax show persistent areas of scarring or atelectasis. The previous consolidation in the right midline had resolved. -Sputum cultures pending -HIV negative -Hepatitis profile negative (6) Depression ICD Codes: F32.9 - Major depressive disorder, single episode, unspecified Status: Acute Plan: Pt was sad upon admit and stated he had been depressed for awhile and was started on Mirtazipine 15 mg/day -Continue Mirtazipine 15mg/day (7) FEN Status: Acute Plan: Fluids: PO fluids Electrolytes: Monitor and replace as needed Nutrition: Regular diet, double portions, with supplements DVT prophylaxis: SCDs, chemoppx contraindicated due to GI bleed GI ppx: Switch from Protonix 40 mg IV bid to Zantac 150 mg/day for discharge (Santiago Rubio MD R1) Problem Qualifiers (1) Depression: Qualified Codes: F32.9 - Major depressive disorder, single episode, unspecified Santiago Rubio MD R1 Mar 01, 2017 13:20 Ely Galvez MD Mar 01, 2017 16:36
[2017-03-01] MEDS ORDERED: CYCL1TAB29 PO (13:46)
[2017-03-01] MEDS ORDERED: THERTAB15 PO (13:46)
[2017-03-01] MEDS ORDERED: ZANT150T2 PO (13:46)
[2017-03-01] MEDS ORDERED: MIRTA15 PO (13:46)
--- NOTE | 2017-03-01 13:51 | HHI.DS ---
Discharge Summary Admission Date Feb 22, 2017 at 17:02 Discharge Date: Mar 01, 2017 Admitting Diagnosis GI Bleed, hyponatremia, tobacco use, cough, daily alcohol use. (1) Beryl-Bailey tear Diagnosis: Principal Plan: Patient has a history of alcohol abuse. CT chest showed dilation of the esophagus with some questionable prominence at the GE junction region. EGD performed, showed nonbleeding Beryl-Bailey tear in the lower third of the esophagus, multiple medium-sized nonbleeding, shallow, alert regular shaped and clean-based ulcers in the gastric antrum consistent with gastritis and negative for H. pylori. Hemoglobin stable. He self-induces vomiting due to severe hiccups. -Consulted GI who performed an EGD -Stop pantoprazole 40 mg IV bid -Start Zantac 150mg BID vs PPI due to pt's inability to pay for medication -Zofran PRN for nausea -Cyclobenzaprine 10 mg/day for hiccups -Pt counselled to refrain from EtOH ICD Codes: K22.6 - Gastro-esophageal laceration-hemorrhage syndrome Status: Acute (2) Submandibular lymphadenopathy Diagnosis: Secondary Plan: Submandibular lymphadenopathy vs swelling is markedly resolved. Has poor dentition, but given significant unintentional weight loss and night sweats, would like to rule out a malignant process. CT soft tissues of the neck showed large lymph node on the right angle of the mandible of 1.5 cm in size. -Dr Marquez examined pt and finds enlarged lymph node to be a pustule -No further workup required ICD Codes: R59.0 - Localized enlarged lymph nodes Status: Acute (3) Hypoglycemia Diagnosis: Secondary Plan: Unexplained hypoglycemic episodes while in the hospital. - Insulin studies (c-peptide, proinsulin, insulin, beta-hydroxybutyrate) negative; insulin antibody pending - Regular accuchecks - Regular diet with double portions ICD Codes: E16.2 - Hypoglycemia, unspecified Status: Acute (4) Alcohol abuse Diagnosis: Secondary Plan: Patient has been drinking one to two 4-packs of beer every day for many years. He has gone through withdrawal before Macrocytosis on CBC. AST greater than ALT on hepatic function panel. CIWA scores remain low at 0 -Multivitamin, thiamine, folic acid -Would benefit from outpatient counseling/rehab, case management on board ICD Codes: F10.10 - Alcohol abuse, uncomplicated Status: Chronic (5) BILLIE (mycobacterium avium-intracellulare) Diagnosis: Secondary Plan: BILLIE seen on chest CT on 12/11/16 hospital visit. -Repeat CT thorax show persistent areas of scarring or atelectasis. The previous consolidation in the right midline had resolved. -Sputum cultures pending -HIV negative -Hepatitis profile negative ICD Codes: A31.0 - Pulmonary mycobacterial infection Status: Resolved (6) Depression Diagnosis: Secondary Plan: Pt was sad upon admit and stated he had been depressed for awhile and was started on Mirtazipine 15 mg/day -Continue Mirtazipine 15mg/day ICD Codes: F32.9 - Major depressive disorder, single episode, unspecified Status: Acute (7) FEN Diagnosis: Secondary Plan: Fluids: PO fluids Electrolytes: Monitor and replace as needed Nutrition: Regular diet, double portions, with supplements DVT prophylaxis: SCDs, chemoppx contraindicated due to GI bleed GI ppx: Switch from Protonix 40 mg IV bid to Zantac 150 mg/day for discharge Status: Acute Consultants GI Procedures EGD performed 02/23/17 Stomach Antral Biopsy Path report (03/01/2017): FINAL DIAGNOSIS: ANTRAL ULCERS, BIOPSY: ANTRAL MUCOSA WITH MODERATE ACTIVE CHRONIC GASTRITIS AND ACUTE ULCERATION. A GALEN STAIN IS NEGATIVE FOR HELICOBACTER. Brief History Mr. Kenyon is a 46-year-old male with no significant past medical history presenting to the ED for throwing up blood since this morning. He states he started throwing up when he was in the bathroom. The first time it looked like coffee and the second time it looked like pure blood. He states that the toilet was almost filled with blood. This is the first time that he has thrown up blood. He has had no issues with coughing up blood. He has never seen a GI doctor. The last time he saw a doctor was according to him a couple of weeks ago for hiccups. He was given a prescription for them which worked. However, he ran out of medication about a week ago. The hiccups thus returned. Subsequently, he has been making himself throw-up to try to get rid of the hiccups. But that has not worked. He has a history of heartburn. Does not take any OTC medications. Lightheaded/dizziness. No bloody or black stools. No ab pain. The patient states that he has been drinking one to two 4-packs of beer a day for years. 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 He has withdrawn before. He has had tremors, but no hallucinations or seizures. CBC/BMP: 03/01/17 0736 03/01/17 0736 Significant Findings Laboratory Tests Test 02/26/17 17:55 02/26/17 19:50 02/27/17 15:42 02/28/17 07:18 Red Blood Count 3.73 MIL/MM3 (4.50-5.90) 3.68 MIL/MM3 (4.50-5.90) 3.75 MIL/MM3 (4.50-5.90) Hematocrit 38.7 % (39.0-51.0) 38.0 % (39.0-51.0) 38.4 % (39.0-51.0) Mean Corpuscular Volume 103.9 FL (80.0-100.0) 103.3 FL (80.0-100.0) 102.3 FL (80.0-100.0) Mean Corpuscular Hemoglobin 35.0 PG (27.0-34.0) 34.1 PG (27.0-34.0) 34.3 PG (27.0-34.0) Monocytes (%) (Auto) 17.9 % (0.0-8.0) 22.6 % (0.0-8.0) Monocytes # (Auto) 1.1 TH/MM3 (0-0.9) 1.3 TH/MM3 (0-0.9) Blood Urea Nitrogen 4 MG/DL (7-18) 4 MG/DL (7-18) 3 MG/DL (7-18) Sodium Level 131 MEQ/L (136-145) 133 MEQ/L (136-145) 135 MEQ/L (136-145) Chloride Level 97 MEQ/L (98-107) Hemoglobin 12.6 GM/DL (13.0-17.0) 12.9 GM/DL (13.0-17.0) Random Glucose 111 MG/DL (74-106) 50 MG/DL (74-106) Test 03/01/17 07:36 Red Blood Count 3.75 MIL/MM3 (4.50-5.90) Hematocrit 38.7 % (39.0-51.0) Mean Corpuscular Volume 103.3 FL (80.0-100.0) Mean Corpuscular Hemoglobin 35.9 PG (27.0-34.0) Monocytes (%) (Auto) 22.5 % (0.0-8.0) Monocytes # (Auto) 1.7 TH/MM3 (0-0.9) Blood Urea Nitrogen 4 MG/DL (7-18) Sodium Level 135 MEQ/L (136-145) Imaging Last Impressions Neck CT 02/27/17 0000 Signed Impressions: Service Date/Time: Monday, February 27, 2017 18:38 - CONCLUSION: Nonspecific adenopathy anterior and posterior neck. The largest is on the right at the angle the mandible. Ernie Contreras MD FACR Abdomen/Pelvis CT 02/27/17 0000 Signed Impressions: Service Date/Time: Monday, February 27, 2017 18:43 - CONCLUSION: Negative for significant adenopathy. No abnormality is appreciated. Ernie Contreras MD FACR Chest X-Ray 02/22/17 1652 Signed Impressions: Service Date/Time: Wednesday, February 22, 2017 17:06 - CONCLUSION: Nasogastric tube across the GE junction. Negative for acute process. Ernie Contreras MD FACR Chest CT 02/22/17 0000 Signed Impressions: Service Date/Time: Wednesday, February 22, 2017 19:44 - CONCLUSION: 1. Persistent areas of scarring or atelectasis. The previously seen consolidation in the right midlung has resolved. 2. Dilatation of the esophagus with some questionable prominence at the GE junction region. Direct inspection of this region could be performed. 3. Hepatic steatosis. Harinder Mckinley MD PE at Discharge GENERAL: Cachectic male sitting on the edge of bed in no apparent distress. HEENT: Submandibular lymphadenopathy vs swelling appears markedly improved; poor dentition and several broken teeth CARDIOVASCULAR: Regular rate and rhythm without murmurs, gallops, or rubs. RESPIRATORY: Breath sounds equal bilaterally. No accessory muscle use. No increased WOB. GASTROINTESTINAL: Abdomen soft, non-tender, nondistended. BS+ EXTREMITIES: No cyanosis, or edema. NEUROLOGICAL: Awake, alert. Non-focal. SKIN: small excoriated lesions on his bilateral thighs; 0.5 x 0.5 well- circumscribed raised papule on right anterolateral neck just below the mandibular angle. Hospital Course Mr. Orozco is a 46-year-old male with a past history of alcohol use who presented to the ED on 02/22 with hematemesis. Upper GI bleed was suspected. GI was consulted. Patient was scoped the next day. A nonbleeding Beryl-Bailey tear was found in the lower third of the esophagus. Also, multiple medium-sized nonbleeding, shallow, irregular shaped and clean-based ulcers were found in the gastric antrum. Biopsies were taken which showed antral mucosa with moderate active chronic gastritis and acute ulceration. Stain was negative for Helicobacter. Patient was also chronically hypoglycemic during his stay. He was finally assumed regular blood glucose readings as of today 02/28 with a regular diet of double portions and Boost supplementation. Patient was concerned about significant lymphadenopathy of his right jaw yesterday. Soft tissue CT of the neck was performed and 1.5 cm enlarged lymph node was found at the right angle of mandible. Interventional radiology was consulted for a biopsy of this particular lymph node. Oncology was also consulted as patient has had significant weight loss of 20 pounds in the past 2 months (since last ED visit on 12/11) along with night sweats. Dr Marquez found the lymph node to be a pustule not requiring further workup. Although an underlying reason for the pt's weight loss has not been found (workup for Hepatitis, HIV, autoimmune) has been negative, insulin antibody test is still pending. If that test is negative, we believe the most likely etiology of weight loss has been his intractable hiccups for which the only relief the pt found was self-induced vomiting. This [id number] vomiting cycle could explain the electrolyte abnormalities, the Beryl-Bailey tear, and possibly the ulcers. On discharge, the pt is in good condition with stable vital signs and without ongoing hematemesis; his hiccups are well controlled with PO Flexeril; and we will treat his GERD with Ranitidine 150 mg BID vs a PPI due to pt's inability to pay for the more expensive PPI treatment. We have consulted case management to hopefully assist the pt with gaining access to the pt assistance program that might be able to get him access to PPI. We are also discharging him with Mirtazapine due to the depression the pt described upon admission. Pt Condition on Discharge: Good Discharge Disposition: Discharge Home Discharge Instructions DIET: Follow Instructions for: As Tolerated, No Restrictions Additional Diet Instructions: To reduce acid reflux, try not to eat anything at least 3 hours prior to going to bed Activities you can perform: Regular-No Restrictions Other Activity Instructions: To reduce acid reflux, please do not eat anything 3 hours prior to going to bed Please follow up with your GI doctor and establish care with a primary care provider Santiago Rubio MD R1 Mar 01, 2017 13:51
[2017-03-10 17:51] LABS: INSULIN AUTO ANTIBODIES LESS THAN 0.4 U/mL (<0.4)
== END 2017-03-01 15:59 | disposition home or self-care (01) | DRG 369 ==
LOC: NEPE 14:42 → NEDA 17:02 → N05A 22:51
PROVIDERS: ADMIT Family Medicine; ATTEND Family Medicine
PROC: 0DB68ZX Excision of Stomach, Via Natural or Artificial Opening Endoscopic, Diagnostic (ICD-10-PCS; principal; 2017-02-23 12:43)
DX: K22.6 Gastro-esophageal laceration-hemorrhage syndrome (principal); E87.1 Hypo-osmolality and hyponatremia; R64 Cachexia; J98.11 Atelectasis; K25.3 Acute gastric ulcer without hemorrhage or perforation; S02.5XXA Fracture of tooth (traumatic), initial encounter for closed fracture; D62 Acute posthemorrhagic anemia; K29.50 Unspecified chronic gastritis without bleeding; R06.6 Hiccough; R12 Heartburn; E16.2 Hypoglycemia, unspecified; D75.89 Other specified diseases of blood and blood-forming organs; R59.0 Localized enlarged lymph nodes; L08.9 Local infection of the skin and subcutaneous tissue, unspecified; F32.9 Major depressive disorder, single episode, unspecified; F10.20 Alcohol dependence, uncomplicated; F17.210 Nicotine dependence, cigarettes, uncomplicated; Y90.0 Blood alcohol level of less than 20 mg/100 ml; Z59.0 Homelessness; Z68.20 Body mass index [BMI] 20.0-20.9, adult; Z83.3 Family history of diabetes mellitus
CPT/HCPCS: 70491; 71010; 71260; 74177; 80048; 80053; 80074; 80307; 81001; 82010; 82948; 83525; 83690; 83735; 84100; 84443; 84681; 85014; 85018; 85025; 85027; 85610; 85730; 86337; 86403; 86703; 86850; 86900; 86901; 87015; 87040; 87070; 87102; 87116; 87205; 87206; 88305; 88312; 96365; 96375; C9113; J0696; J2060; J2405; J3475; J7030; J7042; Q9967

== ENCOUNTER 2017-05-16 11:26 | Emergency (ER) | payer SELFPAY ==
[~2017-05-16] VITALS: Ht 170.2 cm; Wt 62.0 kg
[~2017-05-16 11:26] MED LIST changes: -CHLO25TA38 PO; +CYCL10TA PO; +MIRTA15 PO; +THERTAB15 PO; +ZANT150T2 PO
[2017-05-16 11:40] VITALS: BP 105/67; PULSE 96; RESP 18; TEMP 97.8; O2SAT 97
[2017-05-16] MEDS ORDERED: SODIUM CHLOR 0.9% 1000 ML INJ 1,000 ML IV SCH (11:40)
[2017-05-16] MEDS ORDERED: SODIUM CHLORIDE 0.9% FLUSH 5 ML FLUSH IV FLUSH PRN (11:45)
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
[2017-05-16] MEDS ORDERED: ROBA750T PO (14:39)
[2017-05-16] MEDS ORDERED: IBUP-232 PO (14:39)
[2017-05-16] MEDS ORDERED: METHOCARBAMOL 500 MG TAB PO ONE (14:45)
[2017-05-16] MEDS ORDERED: IBUPROFEN 600 MG TAB PO ONE (14:45)
[2017-05-16 17:12] LABS: BASOPHIL % 0.3 % (0.0-2.0); EOSINOPHIL # 0.2 TH/MM3 (0-0.4); EOSINOPHIL % 1.9 % (0.0-4.0); HEMATOCRIT 41.9 % (39.0-51.0); HEMO FLAGS DIFF FINAL; LYMPH % 29.9 % (9.0-44.0); MEAN CELL VOLUME 84.7 FL (80.0-100.0); MEAN CORPUSCULAR HEMOGLOBIN 28.3 PG (27.0-34.0); MEAN CORPUSCULAR HGB CONC 33.4 % (32.0-36.0); MONO % 7.6 % (0.0-8.0); NEUT % 60.3 % (16.0-70.0); PLATELET COUNT 235 TH/MM3 (150-450); RED BLOOD COUNT 4.94 MIL/MM3 (4.50-5.90); RED CELL DISTRIBUTION WIDTH 13.2 % (11.6-17.2)
[2017-05-16 17:27] LABS: ALT (GPT) 97 U/L (12-78); ANION GAP 10 MEQ/L (5-15); AST (GOT) 164 U/L (15-37); BICARBONATE 24.1 MEQ/L (21.0-32.0); BLOOD UREA NITROGEN 10 MG/DL (7-18); CHLORIDE 105 MEQ/L (98-107); GLOMERULAR FILTRATION RATE 93 ML/MIN (>89); POTASSIUM 3.8 MEQ/L (3.5-5.1); SODIUM (NA) 139 MEQ/L (136-145)
[2017-05-16 17:29] LABS: ALKALINE PHOSPHATASE 84 U/L (45-117)
[2017-05-16 17:32] LABS: ALCOHOL 124 MG/DL (0-5)
[2017-05-16 18:32] VITALS: BP 114/58; PULSE 94; RESP 18; TEMP 98.2; O2SAT 93
[2017-05-16] MEDS ORDERED: IBUPROFEN 600 MG TAB PO PRN (22:00)
[2017-05-16 23:23] VITALS: BP 99/57; PULSE 63; RESP 17
[2017-05-17 06:05] VITALS: BP 105/58; PULSE 58; RESP 17; O2SAT 99
[2017-05-17] MEDS ORDERED: METHOCARBAMOL 500 MG TAB PO ONE (08:15)
[2017-05-17 09:56] VITALS: BP 124/76; PULSE 76; RESP 18; TEMP 98.2; O2SAT 99
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
[2017-05-17 10:25] VITALS: BP 133/76; PULSE 72; RESP 18; O2SAT 99
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
== END 2017-05-17 11:28 | disposition home or self-care (01) ==
LOC: NEPD 11:26 → NEPJ 05-17 11:28
DX: S09.90XA Unspecified injury of head, initial encounter (principal); S16.1XXA Strain of muscle, fascia and tendon at neck level, initial encounter; S22.000A Wedge compression fracture of unspecified thoracic vertebra, initial encounter for closed fracture; F14.10 Cocaine abuse, uncomplicated; F17.200 Nicotine dependence, unspecified, uncomplicated; Y04.2XXA Assault by strike against or bumped into by another person, initial encounter
CPT/HCPCS: 70450; 71010; 72072; 72100; 72125; 72128; 73130; 80053; 80307; 85025; 99285; L0200; L0484

== ENCOUNTER 2017-05-18 21:54 | Emergency (ER) | payer SELFPAY ==
[~2017-05-18] VITALS: Ht 175.3 cm; Wt 65.0 kg
[~2017-05-18 21:54] MED LIST changes: -CYCL10TA PO; +IBUP-232 PO; -MIRTA15 PO; +ROBA750T PO; -THERTAB15 PO; -ZANT150T2 PO
[2017-05-18 22:02] VITALS: BP 100/56; PULSE 72; RESP 18; TEMP 98.5; O2SAT 98
--- NOTE | 2017-05-18 22:11 | PD ---
HPI Chief Complaint: Medical Clearance Time Seen by Provider: 22:01 Travel History International Travel<30 days: No Contact w/Intl Traveler<30days: No Traveled to known affect area: No History of Present Illness HPI patient has already been cleared medically on may 16, also seen by and evaluated by psychiatrist as well. patient returns to ER with full discharge instructions and prescriptions not filled out. patient states that he was unable to fill out "norco" because he does not have a state picture ID. I advised that patient has been fully evaluated and had adequate prescriptions for ibuprofen, robaxin and norco for his t7 20% compression fracture. patient is here for pain control PFSH Past Medical History Hx Anticoagulant Therapy: No Diminished Hearing: No Immunizations Current: No Past Surgical History Joint Replacement: Yes Social History Alcohol Use: Yes (4 PACK/DAY ) Tobacco Use: Yes (1/2 PPD) Substance Use: Yes Allergies-Medications (Allergen,Severity, Reaction): Coded Allergies: No Known Allergies (Verified Adverse Reaction, Unknown, 05/18/17) Reported Meds & Prescriptions Reported Meds & Active Scripts Active No Active Prescriptions or Reported Medications Review of Systems Except as stated in HPI: all other systems reviewed are Neg General / Constitutional: No: Fever Eyes: No: Visual changes HENT: No: Headaches Cardiovascular: No: Chest Pain or Discomfort Respiratory: No: Shortness of Breath Gastrointestinal: No: Abdominal Pain Genitourinary: No: Dysuria Musculoskeletal: Positive: Pain (back pain) Skin: No Rash Neurologic: No: Weakness Psychiatric: No: Depression Endocrine: No: Polydipsia Hematologic/Lymphatic: No: Easy Bruising Physical Exam Narrative GENERAL: SKIN: Warm and dry. HEAD: Atraumatic. Normocephalic. EYES: Pupils equal and round. No scleral icterus. No injection or drainage. ENT: No nasal bleeding or discharge. Mucous membranes pink and moist. NECK: Trachea midline. No JVD. CARDIOVASCULAR: Regular rate and rhythm. RESPIRATORY: No accessory muscle use. Clear to auscultation. Breath sounds equal bilaterally. GASTROINTESTINAL: Abdomen soft, non-tender, nondistended. MUSCULOSKELETAL: Extremities without clubbing, cyanosis, or edema. No obvious deformities. back pain near t6-8 NEUROLOGICAL: Awake and alert. No obvious cranial nerve deficits. Motor grossly within normal limits. Five out of 5 muscle strength in the arms and legs. Normal speech. PSYCHIATRIC: Appropriate mood and affect; insight and judgment normal. Data Data Last Documented VS Vital Signs Date Time Temp Pulse Resp B/P (MAP) Pulse Ox O2 Delivery O2 Flow Rate FiO2 05/18/17 22:04 18 05/18/17 22:02 98.5 72 100/56 (71) 98 Orders Orders Ed Discharge Order (05/18/17 22:13) MDM Medical Decision Making Medical Screen Exam Complete: Yes Emergency Medical Condition: Yes Medical Record Reviewed: Yes Differential Diagnosis n/a patient has already been evaluated Narrative Course patient has had ct head/thorax and other xrays as well as lab work...patient was only found to have a 20% t7 compression fracture, and adequately treated with rx for robaxin,ibuprofen and hydrocodone....which the patient did not fill , patient presents here with a subacute issue which has already been taken care of, patient needs to fill out prescriptions, as the ER is not adequate place for chronic pain management, will be referred to health dept Diagnosis Primary Impression: chronic T7 compression fracture Referrals: [facility] Dept. Patient Instructions: General Instructions, Vertebral Compression Fracture (DC) Scripts No Active Prescriptions or Reported Meds Disposition: DISCHARGE HOME Condition: Stable Tae Waldrop MD May 18, 2017 22:11
== END 2017-05-18 22:44 | disposition home or self-care (01) ==
LOC: NEPD 21:54
DX: M48.54XD Collapsed vertebra, not elsewhere classified, thoracic region, subsequent encounter for fracture with routine healing (principal); F17.200 Nicotine dependence, unspecified, uncomplicated
CPT/HCPCS: 99283

== ENCOUNTER 2017-05-19 08:09 | Emergency (ER) | payer SELFPAY ==
[~2017-05-19] VITALS: Ht 167.6 cm; Wt 60.0 kg
[2017-05-19 08:10] VITALS: BP 125/73; PULSE 68; RESP 18; TEMP 98.3; O2SAT 97
--- NOTE | 2017-05-19 08:39 | PD ---
HPI Chief Complaint: GI Complaint Time Seen by Provider: 08:33 Travel History International Travel<30 days: No Contact w/Intl Traveler<30days: No Traveled to known affect area: No History of Present Illness HPI 46-year-old male presents to the ER today, brought in by EMS complaining of worsening of back pain, abdominal fullness, left rib pains. He states that he had fallen down a flight of stairs 3 days ago, had been imaged here and was found to have a thoracic spine fracture, and was still continued to have pains, was seen at another hospital and found to have left rib fractures. He comes back today because he states that he was having trouble transferring and moving and had called the ambulance to help, and states that while they're moving him, he thinks he exacerbated something, is having more back pains, and feels like his abdomen is getting full, and he has been nauseous and vomiting. He states that he did not have a chance to get his medications filled because of problems with dental filling his prescription without an ID. Modifying Factors: None Associated Signs & Symptoms: Worsening of back pain, rib pains, abdominal fullness Risk Factors: T7 fracture, rib fractures from fall 3 days ago PFSH Past Medical History Hx Anticoagulant Therapy: No Diminished Hearing: No Immunizations Current: No Past Surgical History Joint Replacement: Yes Social History Alcohol Use: Yes (4 PACK/DAY ) Tobacco Use: Yes (1/2 PPD) Substance Use: Yes Allergies-Medications (Allergen,Severity, Reaction): Coded Allergies: No Known Allergies (Verified Adverse Reaction, Unknown, 05/18/17) Reported Meds & Prescriptions Reported Meds & Active Scripts Active No Active Prescriptions or Reported Medications Review of Systems Except as stated in HPI: all other systems reviewed are Neg Physical Exam Narrative GENERAL: Well-developed middle age -[place] male patient currently in moderate distress. Awake and oriented 3. SKIN: Focused skin assessment warm/dry. HEAD: Atraumatic. Normocephalic. EYES: Pupils equal and round. No scleral icterus. No injection or drainage. ENT: No nasal bleeding or discharge. Mucous membranes pink and moist. NECK: Trachea midline. No JVD. CARDIOVASCULAR: Regular rate and rhythm. No murmur appreciated. CHEST: Tender palpation of the left chest wall without deformity or crepitance. No retractions or use of accessory muscles. RESPIRATORY: No accessory muscle use. Clear to auscultation. Breath sounds equal bilaterally. GASTROINTESTINAL: Abdomen soft, mild diffuse abdominal tenderness without guarding or rebound more pronounced in the left upper quadrant, mildly distended. Hepatic and splenic margins not palpable. MUSCULOSKELETAL: No obvious deformities. No clubbing. No cyanosis. No edema. NEUROLOGICAL: Awake and alert. No obvious cranial nerve deficits. Motor grossly within normal limits. Normal speech. PSYCHIATRIC: Appropriate mood and affect; insight and judgment normal. Data Data Last Documented VS Vital Signs Date Time Temp Pulse Resp B/P (MAP) Pulse Ox O2 Delivery O2 Flow Rate FiO2 05/19/17 08:10 98.3 68 18 125/73 (90) 97 Room Air Orders Orders Complete Blood Count With Diff (05/19/17 08:34) Basic Metabolic Panel (Bmp) (05/19/17 08:34) Ct Abd/Pel W Iv Contrast(Rout) (05/19/17 08:34) Ct Thorax/ Chest W Iv Contrast (05/19/17 08:34) Tramadol-Acetamin 37.5-325 Mg (Ultracet (05/19/17 08:45) TLSO (05/19/17 ) Iohexol 350 Inj (Omnipaque 350 Inj) (05/19/17 11:12) Brace Lso-Orthosis (05/19/17 ) Brace Thoracic Ext (05/19/17 ) Labs Laboratory Tests Test 05/19/17 08:45 White Blood Count 9.1 TH/MM3 Red Blood Count 4.60 MIL/MM3 Hemoglobin 12.9 GM/DL Hematocrit 39.3 % Mean Corpuscular Volume 85.4 FL Mean Corpuscular Hemoglobin 28.1 PG Mean Corpuscular Hemoglobin Concent 32.9 % Red Cell Distribution Width 13.1 % Platelet Count 210 TH/MM3 Mean Platelet Volume 7.4 FL Neutrophils (%) (Auto) 67.9 % Lymphocytes (%) (Auto) 20.5 % Monocytes (%) (Auto) 9.3 % Eosinophils (%) (Auto) 1.9 % Basophils (%) (Auto) 0.4 % Neutrophils # (Auto) 6.2 TH/MM3 Lymphocytes # (Auto) 1.9 TH/MM3 Monocytes # (Auto) 0.8 TH/MM3 Eosinophils # (Auto) 0.2 TH/MM3 Basophils # (Auto) 0.0 TH/MM3 CBC Comment DIFF FINAL Differential Comment Blood Urea Nitrogen 14 MG/DL Creatinine 1.18 MG/DL Random Glucose 90 MG/DL Calcium Level 8.6 MG/DL Sodium Level 141 MEQ/L Potassium Level 4.3 MEQ/L Chloride Level 108 MEQ/L Carbon Dioxide Level 27.1 MEQ/L Anion Gap 6 MEQ/L Estimat Glomerular Filtration Rate 81 ML/MIN MDM Medical Decision Making Medical Screen Exam Complete: Yes Emergency Medical Condition: Yes Medical Record Reviewed: Yes Interpretation(s) Laboratory Tests Test 05/19/17 08:45 Hemoglobin 12.9 GM/DL (13.0-17.0) Monocytes (%) (Auto) 9.3 % (0.0-8.0) Chloride Level 108 MEQ/L (98-107) Estimat Glomerular Filtration Rate 81 ML/MIN (>89) Last [address] 05/19/17 0834 Signed Impressions: Service Date/Time: Wednesday, May 19, 2017 10:54 - CONCLUSION: The left fourth and fifth ribs are fractured without significant displacement. No pleural effusion or pneumothorax is seen Aleksandar Hernández MD Differential Diagnosis Abdominal pain, nausea and vomiting, back pains: Muscle spasms versus worsening of fracture versus missed intra-abdominal injuries versus rib fracture versus pneumonia Narrative Course CAT scan shows rib fractures 4 and 5 on the left without underlying pneumothorax or other acute intrathoracic processes. CT of the abdomen pelvis was otherwise unremarkable for any signs of acute trauma. Patient has no focal neurological deficits. He was given tramadol in the ER and is resting comfortably. At this point, I suspect that he needs to get his pain medications filled and needs to be taking them. My plan would be to release him with follow-up to primary care physician. Return for any worsening in symptoms as necessary. The plan has been discussed with him and he states understanding. Diagnosis Primary Impression: Rib fractures Additional Impression: Back pain Scripts No Active Prescriptions or Reported Meds Disposition: 01 DISCHARGE HOME Condition: Stable SoonBrenda schmidt MD May 19, 2017 08:39
[2017-05-19] MEDS ORDERED: traMADol/ACETAMINOPHEN 37.5/325 1 TAB PO ONE (08:45)
[2017-05-19 09:06] LABS: AUTOMATED NEUTROPHIL # 6.2 TH/MM3 (1.8-7.7); BASOPHIL % 0.4 % (0.0-2.0); EOSINOPHIL # 0.2 TH/MM3 (0-0.4); EOSINOPHIL % 1.9 % (0.0-4.0); HEMATOCRIT 39.3 % (39.0-51.0); HEMO FLAGS DIFF FINAL; LYMPH % 20.5 % (9.0-44.0); LYMPHOCYTE # 1.9 TH/MM3 (1.0-4.8); MEAN CELL VOLUME 85.4 FL (80.0-100.0); MEAN CORPUSCULAR HEMOGLOBIN 28.1 PG (27.0-34.0); MEAN CORPUSCULAR HGB CONC 32.9 % (32.0-36.0); MONO % 9.3 % (0.0-8.0); NEUT % 67.9 % (16.0-70.0); PLATELET COUNT 210 TH/MM3 (150-450); RED CELL DISTRIBUTION WIDTH 13.1 % (11.6-17.2); WHITE BLOOD COUNT 9.1 TH/MM3 (4.0-11.0)
[2017-05-19 09:55] LABS: BICARBONATE 27.1 MEQ/L (21.0-32.0); POTASSIUM 4.3 MEQ/L (3.5-5.1)
[2017-05-19] MEDS ORDERED: IOHEXOL 350 MG/ML 10 ML VIAL (for RAD DIAG) IVCONTRAST ONE (11:12)
--- NOTE | 2017-05-19 11:15 | RADRPT ---
EXAM DATE/TIME: 05/19/2017 10:54 [facility] COMPARISON: No previous studies available for comparison. INDICATIONS : Chest pain, nausea, vomiting and back pain. IV CONTRAST: 92 cc Omnipaque 350 (iohexol) IV ; Cumulative dose for multiple exams. RADIATION DOSE: 7.31 CTDIvol (mGy) ; Combined studies - Thorax/Abdomen/Pelvis MEDICAL HISTORY : None SURGICAL HISTORY : None. ENCOUNTER: Initial ACUITY: 1 day PAIN SCALE: 5/10 LOCATION: chest TECHNIQUE: Volumetric scanning of the chest was performed. Using automated exposure control and adjustment of t he mA and/or kV according to patient size, radiation dose was kept as low as reasonably achievable to obtain optimal diagnostic quality images. DICOM format image data is available electronically for review and comparison. Follow-up recommendations for detected pulmonary nodules are based at a minimum on nodule size and pa tient risk factors according to Fleischner Society Guidelines. FINDINGS: LUNGS: There is no consolidation or pneumothorax. No concerning pulmonary nodule is visualized. PLEURA: There is no pleural thickening or pleural effusion. MEDIASTINUM: The heart and great vessels demonstrate no acute abnormality. There is no mediastinal or hilar lymph adenopathy. AXILLAE: Within normal limits. No lymphadenopathy. SKELETAL: Fractures of left fourth and fifth ribs new since January. Age-indeterminate possibly chronic [place] fracture of the left glenoid MISCELLANEOUS: The visualized upper abdominal organs demonstrate no acute abnormality. CONCLUSION: The left fourth and fifth ribs are fractured without significant displacement. No pleural effusion or pneumothorax is seen Aleksandar Hernández MD on May 19, 2017 at 11:12 Board Certified Radiologist. This report was verified electronically.
--- NOTE | 2017-05-19 11:32 | RADRPT ---
EXAM DATE/TIME: 05/19/2017 10:54 [facility] COMPARISON: CT ABDOMEN & PELVIS W CONTRAST, February 27, 2017, 18:43. INDICATIONS : Nausea, vomiting and back pain. IV CONTRAST: 92 cc Omnipaque 350 (iohexol) IV ; Cumulative dose for multiple exams. ORAL CONTRAST: No oral contrast ingested. RADIATION DOSE: 7.31 CTDIvol (mGy) ; Combined studies - Thorax/Abdomen/Pelvis MEDICAL HISTORY : None SURGICAL HISTORY : None. ENCOUNTER: Initial ACUITY: 1 day PAIN SCALE: 5/10 LOCATION: abdomen TECHNIQUE: Volumetric scanning of the abdomen and pelvis was performed. Using automated exposure control and ad justment of the mA and/or kV according to patient size, radiation dose was kept as low as reasonably achievable to obtain optimal diagnostic quality images. DICOM format image data is available electro nically for review and comparison. FINDINGS: LOWER LUNGS: Very minimal ground glass opacities at the extreme right lung base. LIVER: Homogeneous density without lesion. There is no dilation of the biliary tree. No calcified gallston es. SPLEEN: Normal size without lesion. PANCREAS: Within normal limits. KIDNEYS: Normal in size and shape. There is no mass, stone or hydronephrosis. ADRENAL GLANDS: Within normal limits. VASCULAR: There is no aortic aneurysm. BOWEL/MESENTERY: Multiple loops of fluid-filled nondistended small bowel. No gross bowel wall thickening. Moderate peoln unt of stool in the rectum. No free air, free fluid, or drainable fluid collection. ABDOMINAL WALL: Within normal limits. RETROPERITONEUM: There is no lymphadenopathy. BLADDER: Bladder is distended but otherwise unremarkable by CT. REPRODUCTIVE: Within normal limits. INGUINAL: There is no lymphadenopathy or hernia. MUSCULOSKELETAL: Within normal limits for patient age. CONCLUSION: 1. Nondistended fluid-filled loops of small bowel, a nonspecific finding but may be seen with gastroe nteritis. 2. Otherwise, no acute CT abnormality in the abdomen or pelvis. Oswaldo Newton MD on May 19, 2017 at 11:21 Board Certified Radiologist. This report was verified electronically.
== END 2017-05-19 11:49 | disposition home or self-care (01) ==
LOC: NEPC 08:09
DX: S22.42XA Multiple fractures of ribs, left side, initial encounter for closed fracture (principal); R11.2 Nausea with vomiting, unspecified; W10.9XXA Fall (on) (from) unspecified stairs and steps, initial encounter
CPT/HCPCS: 71260; 74177; 80048; 85025; 99285; L0200; L0484; Q9967

== ENCOUNTER 2017-06-01 16:31 | Emergency (ER) | payer SELFPAY ==
[~2017-06-01] VITALS: Ht 167.6 cm; Wt 59.1 kg
[2017-06-01 16:35] VITALS: BP 141/87; PULSE 111; RESP 20; TEMP 98.4; O2SAT 95
[2017-06-01] MEDS ORDERED: SULFAMETHOXAZOLE-TRIMETHOPRIM DS 800-160 MG TAB PO ONE (18:00)
[2017-06-01] MEDS ORDERED: DEXAMETHASONE SOD PHOS 20 MG/5 ML VIAL IM ONE (18:00)
--- NOTE | 2017-06-01 18:08 | PD ---
HPI Chief Complaint: Skin Problem Time Seen by Provider: 17:47 Travel History International Travel<30 days: No Contact w/Intl Traveler<30days: No Traveled to known affect area: No History of Present Illness HPI 46-year-old male presents to the emergency room via ambulance for evaluation of bilateral foot rash for the past 3 weeks. 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 He does not remember getting bitten by anything. States it is occasionally itchy but mostly it is painful. States his feet will randomly develop sharp stabbing pains in both feet. Patient is homeless. He last took a shower his friend's house yesterday. States the rash is no or else on his body. Denies history of diabetes. PFSH Past Medical History Hx Anticoagulant Therapy: No Diminished Hearing: No Immunizations Current: No Past Surgical History Joint Replacement: Yes Social History Alcohol Use: Yes (4 PACK/DAY ) Tobacco Use: Yes (1/2 PPD) Substance Use: Yes (COCAINE) Allergies-Medications (Allergen,Severity, Reaction): Coded Allergies: No Known Allergies (Verified Adverse Reaction, Unknown, 06/01/17) Reported Meds & Prescriptions Reported Meds & Active Scripts Active No Active Prescriptions or Reported Medications Review of Systems Except as stated in HPI: all other systems reviewed are Neg Physical Exam Narrative GENERAL: Well-nourished, well-developed male in no acute distress. Afebrile. Ambulatory. SKIN: Focused skin assessment warm/dry. Multiple 1-2 mm pustules to bilateral ankles and feet with surrounding purulent drainage and lichenification. No significant erythema or lymphangitis. HEAD: Normocephalic. EYES: No scleral icterus. No injection or drainage. NECK: Supple, trachea midline. No JVD or lymphadenopathy. CARDIOVASCULAR: Regular rate and rhythm without murmurs, gallops, or rubs. RESPIRATORY: Breath sounds equal bilaterally. No accessory muscle use. MUSCULOSKELETAL: No cyanosis. Moderate edema of bilateral feet, left worse than right. 2+ dorsalis pedis pulses are equal bilaterally. Patient has full range of motion of bilateral feet. Data Data Last Documented VS Vital Signs Date Time Temp Pulse Resp B/P (MAP) Pulse Ox O2 Delivery O2 Flow Rate FiO2 06/01/17 16:35 98.4 111 20 141/87 (105) 95 Room Air Orders Orders Dexamethasone Inj (Decadron Inj) (06/01/17 18:00) Sulfamet-Trimeth Ds 800-160 Mg (Bactrim (06/01/17 18:00) MDM Medical Decision Making Medical Screen Exam Complete: Yes Emergency Medical Condition: Yes Medical Record Reviewed: Yes Differential Diagnosis Cellulitis, allergic reaction, contact dermatitis Narrative Course 46-year-old male presents to the emergency room via ambulance for evaluation of painful rash to bilateral feet. First noticed it 3 weeks ago. He is homeless. 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 Physical exam reveals multiple 1-2 mm pustules with surrounding edema and lichenification to bilateral ankles and dorsal feet. No plantar involvement. There is multiple open areas of purulent drainage. No significant erythema or lymphangitis. History and physical exam are consistent with multiple ant bites that have subsequently developed a secondary infection. Patient was given Decadron in the emergency room for inflammatory response to insect bites. He was also given first dose of Bactrim and discharged with prescription for the same. Told to follow-up with a primary care physician or return for worsening symptoms. He understands and agrees to plan. Diagnosis Primary Impression: Cellulitis Qualified Codes: L03.119 - Cellulitis of unspecified part of limb Additional Impression: Insect bite Qualified Codes: W57.XXXA - Bitten or stung by nonvenomous insect and other nonvenomous arthropods, initial encounter Referrals: Primary Care Physician Additional Instructions: Keep wounds clean and dry. Apply triple antibiotic ointment daily. Take Bactrim as directed, until gone. Follow up with a primary care physician. Return to emergency room for worsening symptoms, as discussed. Scripts No Active Prescriptions or Reported Meds Disposition: 01 DISCHARGE HOME Condition: Stable Olga Grimes Jun 01, 2017 18:08
[2017-06-01] MEDS ORDERED: BACT800T5 PO (18:09)
[2017-06-01 18:19] VITALS: PULSE 104; RESP 24
== END 2017-06-01 18:35 | disposition home or self-care (01) ==
LOC: NEPK 16:31
DX: L03.116 Cellulitis of left lower limb (principal); L03.115 Cellulitis of right lower limb; F17.200 Nicotine dependence, unspecified, uncomplicated; Z59.0 Homelessness
CPT/HCPCS: 96372; 99284; J1100

== ENCOUNTER 2017-06-14 13:32 | Emergency (ER) | payer OTHER ==
[~2017-06-14] VITALS: Ht 167.6 cm; Wt 65.9 kg
[~2017-06-14 13:32] MED LIST changes: +BACT800T5 PO; -IBUP-232 PO; -ROBA750T PO
[2017-06-14 13:33] VITALS: BP 119/78; PULSE 87; RESP 16; TEMP 97.5; O2SAT 99
--- NOTE | 2017-06-14 14:46 | RADRPT ---
EXAM DATE/TIME: 06/14/2017 14:26 [facility] COMPARISON: No previous studies available for comparison. INDICATIONS : Left foot pain; hit foot on table today. MEDICAL HISTORY : None. SURGICAL HISTORY : None. ENCOUNTER: Initial ACUITY: 1 day PAIN SCORE: 8/10 LOCATION: Left 3rd-5th digit; hand. FINDINGS: Three view examination of the left foot demonstrates no soft tissue swelling, dislocation, or fractur e. The tarsal bones appear intact. The interphalangeal and metatarsophalangeal joints are intact. The calcaneus is intact. Bony mineralization is normal. CONCLUSION: Negative for fracture or dislocation. Follow up in 7-10 days is suggested if symptoms persist. Ernie Contreras MD FACR on June 14, 2017 at 14:44 Board Certified Radiologist. This report was verified electronically.
--- NOTE | 2017-06-14 14:48 | PD ---
HPI Chief Complaint: Injury Time Seen by Provider: 14:05 Travel History International Travel<30 days: No Contact w/Intl Traveler<30days: No Traveled to known affect area: No History of Present Illness HPI 46-year-old male here with left foot pain after he contused the area on a piece of furniture. Injury occurred today. He has pain in the dorsal aspect of his foot. No aggravating or alleviating factors. Symptoms severity is mild. PFSH Past Medical History Medical History: Denies Significant Hx Hx Anticoagulant Therapy: No Diminished Hearing: No Musculoskeletal: Yes (t fx) Immunizations Current: No Tetanus Vaccination: < 5 Years Past Surgical History Joint Replacement: Yes Social History Alcohol Use: Yes (4 PACK/DAY ) Tobacco Use: Yes (1/2 PPD) Substance Use: Yes (COCAINE) Allergies-Medications (Allergen,Severity, Reaction): Coded Allergies: No Known Allergies (Verified Adverse Reaction, Unknown, 06/14/17) Reported Meds & Prescriptions Reported Meds & Active Scripts Active No Active Prescriptions or Reported Medications Review of Systems Except as stated in HPI: all other systems reviewed are Neg Physical Exam Narrative GENERAL: Alert male area and well-appearing. Texting on cellphone during the interview and physical exam. SKIN: Warm and dry. No abrasions. HEAD: Normocephalic. Atraumatic EYES: No injection or drainage. NECK: Supple, trachea midline. MUSCULOSKELETAL: No cyanosis, or edema. Left Foot: Mild tenderness to the left third-fifth toes. No deformity. No swelling or edema. 2+ dorsal pedis pulse. Brisk cap refill. Data Data Last Documented VS Vital Signs Date Time Temp Pulse Resp B/P (MAP) Pulse Ox O2 Delivery O2 Flow Rate FiO2 06/14/17 15:01 06/14/17 13:33 97.5 87 16 99 Orders Orders Foot, Complete ([id number]) (06/14/17 ) Ed Discharge Order (06/14/17 14:49) MDM Medical Decision Making Medical Screen Exam Complete: Yes Emergency Medical Condition: Yes Differential Diagnosis Contusion, toe fracture, toe sprain Narrative Course 46-year-old male here for evaluation of left foot pain after a contused area on a piece of furniture today. X-rays negative for fracture. The extremity is neurovascular intact. There is no evidence of trauma. Diagnosis Primary Impression: Contusion of left foot Qualified Codes: S90.32XA - Contusion of left foot, initial encounter Referrals: [facility] No Active Prescriptions or Reported Meds Disposition: 01 DISCHARGE HOME Condition: Stable Janene Pires Jun 14, 2017 14:48
== END 2017-06-14 18:33 | disposition home or self-care (01) ==
LOC: NEPK 13:32
DX: S90.32XA Contusion of left foot, initial encounter (principal); W22.03XA Walked into furniture, initial encounter
CPT/HCPCS: 73630; 99284; L0200

== ENCOUNTER 2017-07-24 10:49 | Emergency (ER) | payer SELFPAY ==
[~2017-07-24] VITALS: Ht 167.6 cm; Wt 68.0 kg
[2017-07-24 10:51] VITALS: BP 109/57; PULSE 97; RESP 13; TEMP 98; O2SAT 96
[2017-07-24] MEDS ORDERED: IBUPROFEN 400 MG TAB PO ONE (11:15)
[2017-07-24] MEDS ORDERED: METHOCARBAMOL 500 MG TAB PO ONE (11:15)
--- NOTE | 2017-07-24 11:19 | PD ---
Physical Exam Date Seen by Provider: Jul 24, 2017 Narrative Patient presents with a couple of complaints. He is complaining with bilateral foot pain which started 4 days ago when he returned to work following an injury. In addition, he is complaining with a cough. Data Data Last Documented VS Vital Signs Date Time Temp Pulse Resp B/P (MAP) Pulse Ox O2 Delivery O2 Flow Rate FiO2 07/24/17 10:51 98.0 97 13 109/57 (74) 96 Orders Orders Ibuprofen (Motrin) (07/24/17 11:15) Methocarbamol (Robaxin) (07/24/17 11:15) MDM Supervised Visit with VALERIE: Yes Narrative Course I, Dr. Bangura, have reviewed the advance practice practitioner's documentation and am in agreement, met with the patient face to face, made the diagnosis, and the medical decision making was done by me. *My assessment and Findings: When I went in to see the patient, he was very angry. He was speaking in complete sentences without any respiratory distress. Vital Signs Date Time Temp Pulse Resp B/P (MAP) Pulse Ox O2 Delivery O2 Flow Rate FiO2 07/24/17 10:51 98.0 97 13 109/57 (74) 96 Please see Hattie Acevedo NP's note for laboratory and radiology results, final diagnosis and disposition Scripts No Active Prescriptions or Reported Meds Disposition: 01 DISCHARGE HOME Condition: Stable Ely Bangura MD Jul 24, 2017 11:19
[2017-07-24] MEDS ORDERED: ROBA750T PO (11:22)
[2017-07-24] MEDS ORDERED: IBUP-232 PO (11:22)
--- NOTE | 2017-07-24 11:24 | PD ---
HPI Chief Complaint: Pain: Acute or Chronic Time Seen by Provider: 11:05 Travel History International Travel<30 days: No Contact w/Intl Traveler<30days: No Traveled to known affect area: No History of Present Illness HPI 46-year-old male presents to the emergency department complaining of pain since he went back to work 4 days ago. He has a history of a chronic T7 compression fracture. He states that since going back to work, he has low back pain as well as bilateral feet and ankle pain. He denies any new injury. He also states that he has had a cough for 1 week. The patient denies any fevers or chills. No loss of bowel or bladder control. No saddle anesthesias. Patient is agitated upon my exam. He is requesting multiple x-rays to be completed although these are not medically necessary. He has not followed up with a primary care physician. Mild severity. PFSH Past Medical History Hx Anticoagulant Therapy: No Diminished Hearing: No Musculoskeletal: Yes (t fx) Immunizations Current: No Past Surgical History Joint Replacement: Yes Social History Alcohol Use: Yes (4 PACK/DAY ) Tobacco Use: Yes (1/2 PPD) Substance Use: Yes (COCAINE) Allergies-Medications (Allergen,Severity, Reaction): Coded Allergies: No Known Allergies (Verified Adverse Reaction, Unknown, 06/14/17) Reported Meds & Prescriptions Reported Meds & Active Scripts Active No Active Prescriptions or Reported Medications Review of Systems ROS Limitations: Uncooperative Except as stated in HPI: all other systems reviewed are Neg Physical Exam Narrative GENERAL: Well-nourished, well-developed male patient, afebrile. SKIN: Focused skin assessment warm/dry. HEAD: Normocephalic. Atraumatic. ENT: Mucosa pink and moist. No erythema or exudates. No uvular edema. No uvular , palatal, or tonsillar deviation. Airway patent. Nasal turbinates appear normal without nasal blood, purulent drainage or septal hematoma. Bilateral tympanic membranes are clear without erythema or perforation. EYES: No scleral icterus. No injection or drainage. NECK: Supple, trachea midline. No JVD or lymphadenopathy. CARDIOVASCULAR: Regular rate and rhythm without murmurs, gallops, or rubs. Bilateral pedal pulses 2+. RESPIRATORY: Breath sounds equal bilaterally. No accessory muscle use. Lungs sounds are clear to auscultation. GASTROINTESTINAL: Abdomen soft, non-tender, nondistended. MUSCULOSKELETAL: No cyanosis, or edema. Patient is able to walk without difficulty. Bilateral upper and lower extremity strength 5/5. BACK: Nontender without obvious deformity. No CVA tenderness. Data Data Last Documented VS Vital Signs Date Time Temp Pulse Resp B/P (MAP) Pulse Ox O2 Delivery O2 Flow Rate FiO2 07/24/17 10:51 98.0 97 13 109/57 (74) 96 Orders Orders Ibuprofen (Motrin) (07/24/17 11:15) Methocarbamol (Robaxin) (07/24/17 11:15) [facility] Medical Decision Making Medical Screen Exam Complete: Yes Emergency Medical Condition: Yes Medical Record Reviewed: Yes Differential Diagnosis Chronic pain versus muscle strain versus URI Narrative Course 46-year-old male presents to the emergency department complaining of low back pain, bilateral feet and ankle pain as well as a cough. Physical exam is reassuring. Patient has a chronic T7 compression fracture. He has had no new injury. Patient is demanding x-rays to be completed of his bilateral feet and ankles. He has had no injury. There is no evidence of acute injury. I discussed with him that this was not indicated at this time he should follow up with a primary care physician. He became agitated and putting his hand in my face. When I asked him to put his hand down, he continued to do so. I instructed him that I would leave the room if he did not put his hand down. At that time, he started screaming and refusing to talk to me anymore. My attending physician, Dr. Bangura, went in the room per his request. He continued to scream and be agitated. The patient is given ibuprofen 400 mg by mouth and Robaxin 500 mg by mouth. He' ll be discharged with prescriptions for the same. He is to follow-up with her primary care physician. The patient was discharged in stable condition with instructions, including return instructions and follow up instructions. Diagnosis Primary Impression: Low back pain Qualified Codes: M54.5 - Low back pain; G89.29 - Other chronic pain Referrals: [facility] call for appointment Primary Care Physician call for appointment Patient Instructions: Back Pain (ED), General Instructions Additional Instructions: Take ibuprofen as directed as needed with food for pain. Take Robaxin as directed as needed. Follow-up with your primary care physician. Return to the emergency department for any acute worsening of symptoms. Med/Other Pt SpecificInfo: Prescription(s) given Scripts Methocarbamol (Robaxin) 750 Mg Tab 750 MG PO TID Y for MUSCLE SPASM, #21 TAB 0 Refills Prov: Hattie Acevedo 07/24/17 Ibuprofen (Ibuprofen) 600 Mg Tab 600 MG PO TID Y for PAIN SCALE 1 TO 10, #21 TAB 0 Refills Prov: Hattie Acevedo 07/24/17 Disposition: 01 DISCHARGE HOME Condition: Stable Hattie Acevedo Jul 24, 2017 11:23
== END 2017-07-24 12:00 | disposition home or self-care (01) ==
LOC: NEPD 10:49
DX: M54.5 Low back pain (principal); G89.29 Other chronic pain; R05 Cough; F17.200 Nicotine dependence, unspecified, uncomplicated; F14.90 Cocaine use, unspecified, uncomplicated
CPT/HCPCS: 99283